=== PATIENT | female | born 1960 | race Caucasian/White ===

== ENCOUNTER 2021-07-28 15:27 | Emergency (ER) | payer OTHER, SELFPAY ==
[2021-07-28 16:16] VITALS: BP 162/88; PULSE 66; RESP 18; TEMP 36.5; O2SAT 99; BMI 45.7
[2021-07-28 16:20] VITALS: BP 148/73
[2021-07-28 17:24] LABS: Basophils Absolute Auto 0.1 X10*3/uL (0.0-0.2); Basophils Percent Auto 0.7 % (0-2); Eosinophils Absolute Auto 0.4 X10*3/uL (0.0-0.4); Eosinophils Percent Auto 6.1 % (0-4); Hematocrit 39.3 % (37.0-47.0); Hemoglobin 13.1 g/dl (12.0-16.0); Imm Gran Abs Auto 0.02 X10*3/uL (0.00-0.03); Imm Gran Pct Auto 0.3 % (0.0-0.4); Lymphocytes Absolute Auto 1.7 X10*3/uL (1.2-4.9); Lymphocytes Percent Auto 24.1 % (20-40); MANUAL DIFF FLAG NO; Mean Corpuscular HGB Conc 33.3 g/dl (31.0-35.0); Mean Corpuscular Hemoglobin 29.2 pg (27.0-33.0); Mean Corpuscular Volume 87.7 fL (80.0-98.0); Monocytes Absolute Auto 0.6 X10*3/uL (0.1-1.2); Monocytes Percent Auto 8.6 % (2-11); Neutrophils Absolute Auto 4.3 x10*3/uL (2.0-8.3); Neutrophils Percent Auto 60.2 % (45-73); Platelet Count 213 X10*3/uL (160-400); Red Blood Count 4.48 X10*6/uL (4.20-5.50); Red Cell Distribution Width 13.2 % (11.0-16.0); White Blood Count 7.2 X10*3/uL (4.8-10.8)
[2021-07-28 17:44] LABS: Alanine Aminotransferase 23 U/L (0-31); Albumin Level 4.4 g/dL (3.5-5.0); Alkaline Phosphatase 92 U/L (39-117); Anion Gap 12 (12-20); Aspartate Amino Transferase 20 U/L (5-31); Bilirubin Total 0.5 mg/dL (0.0-1.0); Blood Urea Nitrogen 12 mg/dL (9-16); Calcium 9.6 mg/dL (8.4-10.2); Carbon Dioxide 27 mmol/L (22-29); Chloride 106 mmol/L (96-108); Creatinine Clr Calc Pharmacy 92.4; Estimated Glomerular Filt Rate > 60; Glucose Random 96 mg/dL (60-115); Potassium 4.3 mmol/L (3.3-5.1); Sodium 141 mmol/L (135-145); Total Protein 7.3 g/dL (6.5-8.0)
--- NOTE | 2021-07-28 21:21 | ED_ITS ---
HPI - Back Pain/Injury General Chief Complaint: Abdominal Pain Stated Complaint: lower back pain Time Seen by Provider: 07/28/21 21:19 Source: patient Mode of arrival: ambulatory History of Present Illness HPI Narrative: 60-year-old female history of asthma LBBB presents with left lower back pain that is not been associated with fever, chills, nausea, vomiting, diarrhea and denies any urinary pain/burning/frequency. She states that the pain is constant and worsens with movement an wraps around into the left lower quadrant. The pain is been ongoing since Thursday. Patient does get some relief from application heat pack. Related Data Previous Rx's Medication Instructions Recorded cyclobenzaprine 5 mg tablet 5 mg PO BEDTIME PRN #3 tab 07/28/21 ketorolac 10 mg tablet 10 mg PO Q6H PRN 5 Days #20 tab 07/28/21 Allergies Allergy/AdvReac Type Severity Reaction Status Date / Time azithromycin AdvReac Abdominal Verified 07/28/21 16:20 Pain Review of Systems Review of Systems: Pertinent positives and negatives as stated in HPI 10 point review of systems is otherwise negative. [facility] Past Medical History Source: nursing notes reviewed Social History Social History Patient : No Physical Exam Vital Signs: Vital Signs: Last Vital Signs Temp 97.7 F 07/28/21 16:16 Pulse 66 07/28/21 16:16 Resp 18 07/28/21 16:16 BP 148/73 H 07/28/21 16:20 Pulse Ox 99 07/28/21 16:16 BMI result Body Mass Index 45.7 VITAL SIGNS: Reviewed. GENERAL: Well developed, well nourished, in no acute distress. HEAD: Normocephalic/atraumatic EYES: PERRLA, EOMI EARS: Ext canals without abnormality OROPHARYNX: no oral lesions noted, posterior pharynx clear LUNGS: Normal breath sounds. No adventitious sounds or accessory muscle use. SpO2<99> CARDIOVASCULAR: Regular rate and rhythm without noted murmurs ABDOMEN: Soft, non-tender, non-distended with bowel sounds. BACK: No CVA tenderness, tenderness to palpation over the superior left gluteus MUSCULOSKELETAL: No tenderness, deformities, or effusions noted on gross inspection. EXTREMITIES: No cyanosis, clubbing or edema. SKIN: Inspection of the skin reveals no rashes NEUROLOGIC: Alert and oriented x 4. Strength and sensation to light touch were grossly intact x 4. Course Course Course Narrative: 60-year-old female with history and clinical presentation consistent with acute on chronic back pain likely associated muscle spasm with radicular distribution. There is no history or clinical exam findings to suggest diverticulitis, renal colic, UTI, pyelonephritis. Patient provided with combination analgesics, lidocaine patch a small dose of muscle relaxant. On review of all investigations there are no acute findings and documentation from the urgent care demonstrates a negative urinalysis. Patient was instructed to stop the antibiotics that she had been provided by urgent care. She is otherwise discharged home in stable condition MDM - Back Pain/Injury Lab Data Result diagrams: 07/28/21 17:17 07/28/21 17:17 Labs: Lab Results 07/28/21 07/28/21 Range/Units 17:17 17:17 WBC 7.2 (4.8-10.8) X10*3/uL RBC 4.48 (4.20-5.50) X10*6/uL Hgb 13.1 (12.0-16.0) g/dl Hct 39.3 (37.0-47.0) % MCV 87.7 (80.0-98.0) fL MCH 29.2 (27.0-33.0) pg MCHC 33.3 (31.0-35.0) g/dl RDW 13.2 (11.0-16.0) % Plt Count 213 (160-400) X10*3/uL MPV 8.0 L (9.4-12.3) fL Immature Gran % (Auto) 0.3 (0.0-0.4) % Neut % (Auto) 60.2 (45-73) % Lymph % (Auto) 24.1 (20-40) % Cache % (Auto) 8.6 (2-11) % Eos % (Auto) 6.1 H (0-4) % Baso % (Auto) 0.7 (0-2) % Lymph # (Auto) 1.7 (1.2-4.9) X10*3/uL Cache # (Auto) 0.6 (0.1-1.2) X10*3/uL Eos # (Auto) 0.4 (0.0-0.4) X10*3/uL Baso # (Auto) 0.1 (0.0-0.2) X10*3/uL Abs Immat Gran (auto) 0.02 (0.00-0.03) X10*3/uL Absolute Neuts (auto) 4.3 (2.0-8.3) x10*3/uL Absolute Nucleated RBC 0.000 (0.0-0.012) X10*3/uL Nucleated RBC % (auto) 0.0 (0.0-0.2) /100WBC Sodium 141 (135-145) mmol/L Potassium 4.3 (3.3-5.1) mmol/L Chloride 106 (96-108) mmol/L Carbon Dioxide 27 (22-29) mmol/L Anion Gap 12 (12-20) BUN 12 (9-16) mg/dL Creatinine 0.79 (0.5-1.4) mg/dL Estim Creat Clear Calc 92.4 Estimated GFR > 60 Random Glucose 96 (60-115) mg/dL Calcium 9.6 (8.4-10.2) mg/dL Total Bilirubin 0.5 (0.0-1.0) mg/dL AST 20 (5-31) U/L ALT 23 (0-31) U/L Alkaline Phosphatase 92 (39-117) U/L Total Protein 7.3 (6.5-8.0) g/dL Albumin 4.4 (3.5-5.0) g/dL Discharge Plan Discharge Clinical Impression: Back pain, Muscle spasm Patient Disposition: Home, Self-Care Instructions: Lumbar Radiculopathy (ED), Muscle Spasm (ED), Back Pain (ED), Lower Back Exercises (ED) Additional Instructions: 1. Resume all home medications as prescribed. STOP taking antibiotics. 2. Tylenol 1000 mg, orally, every 6 hours as needed for pain control. Do not exceed 4000 mg within 24 hours. 3. Lidocaine patch, apply to area of maximal tenderness as directed on the outside packaging. 4. Follow-up with your primary care provider for re-evaluation further outpatient management. Return to the ER for worsening symptoms. Prescriptions: New ketorolac 10 mg tablet 10 mg PO Q6H PRN (Reason: pain) 5 Days Qty: 20 0RF Rx Instructions: Patient received Toradol in the emergency room. cyclobenzaprine 5 mg tablet 5 mg PO BEDTIME PRN (Reason: muscle spasm) Qty: 3 0RF
[2021-07-28] MEDS: Acetaminophen 325 MG TABLET 975 MG PO (21:38)
[2021-07-28] MEDS: Cyclobenzaprine HCl 5 MG TABLET PO (21:40)
[2021-07-28] MEDS: Lidocaine 4 % Patch ADH..PATCH 1 PATCH TRANSDERMA (21:40)
[2021-07-28] MEDS: Ketorolac Tromethamine 15 MG/ML VIAL IM (21:41)
== END 2021-07-28 21:54 | disposition home or self-care (01) ==
LOC: HO.ED 21:37
PROVIDERS: Emergency Provider Student in an Organized Health Care Education/Training Program; PCP Internal Medicine
DX: M54.50 Low back pain, unspecified (principal); Z79.899 Other long term (current) drug therapy
CPT/HCPCS: 36415; 80053; 85025; 96372; 99283; 99284; J1885

== ENCOUNTER → 2021-10-01 13:56 | Outpatient (BNVA) | payer OTHER, SELFPAY | PROVIDERS: PCP Internal Medicine; Visit Provider Physician Assistant | DX: E66.01 Morbid (severe) obesity due to excess calories (principal); Z68.42 Body mass index [BMI] 45.0-49.9, adult; I44.7 Left bundle-branch block, unspecified; J45.909 Unspecified asthma, uncomplicated; G47.10 Hypersomnia, unspecified ==

== ENCOUNTER 2021-10-24 08:40 | Outpatient (REF) | payer OTHER, SELFPAY ==
[2021-10-29 11:58] LABS: H Pylori Breath Test Negative (Negative)
== END 2021-10-24 08:41 | disposition home or self-care (01) ==
LOC: HO.LNP 08:40
PROVIDERS: Visit Provider Physician Assistant
DX: E66.01 Morbid (severe) obesity due to excess calories (principal); I44.7 Left bundle-branch block, unspecified; J45.909 Unspecified asthma, uncomplicated
CPT/HCPCS: 83013

== ENCOUNTER 2021-10-25 09:20 | Outpatient (REF) | payer OTHER, SELFPAY ==
--- NOTE | ~2021-10-25 | XR_ITS ---
EXAMINATION: XR CHEST CLINICAL INFORMATION: Bariatric service evaluation. COMPARISON: None TECHNIQUE: 2 views of the chest were obtained. FINDINGS: Lungs clear. No lobar or segmental consolidation or ground-glass opacity. Tapering cardiac apex is consistent with benign areolar tissue. The costophrenic sulci are clear. Heart size normal. Vascularity normal. The hilar and mediastinal contours and visualized bony structures are unremarkable. XR/XR chest 2V IMPRESSION: Unremarkable examination.
[2021-10-25 09:49] LABS: MANUAL DIFF FLAG NO
[2021-10-25 10:09] LABS: Basophils Percent Auto 0.5 % (0-2); Eosinophils Absolute Auto 0.2 X10*3/uL (0.0-0.4); Hematocrit 39.9 % (37.0-47.0); Hemoglobin 13.5 g/dl (12.0-16.0); Imm Gran Abs Auto 0.02 X10*3/uL (0.00-0.03); Imm Gran Pct Auto 0.4 % (0.0-0.4); Lymphocytes Absolute Auto 1.6 X10*3/uL (1.2-4.9); Lymphocytes Percent Auto 28.1 % (20-40); Mean Corpuscular HGB Conc 33.8 g/dl (31.0-35.0); Mean Corpuscular Hemoglobin 29.3 pg (27.0-33.0); Mean Corpuscular Volume 86.6 fL (80.0-98.0); Mean Platelet Volume 8.5 fL (9.4-12.3); Monocytes Absolute Auto 0.5 X10*3/uL (0.1-1.2); Monocytes Percent Auto 8.1 % (2-11); Neutrophils Absolute Auto 3.4 x10*3/uL (2.0-8.3); Neutrophils Percent Auto 59.9 % (45-73); Platelet Count 230 X10*3/uL (160-400); Red Blood Count 4.61 X10*6/uL (4.20-5.50); Red Cell Distribution Width 12.9 % (11.0-16.0); White Blood Count 5.7 X10*3/uL (4.8-10.8)
[2021-10-25 10:28] LABS: Estimated Average Glucose 108 mg/dL; Hemoglobin A1c % 5.4 %
[2021-10-25 10:38] LABS: Alanine Aminotransferase 13 U/L (0-31); Albumin Level 4.3 g/dL (3.5-5.0); Alkaline Phosphatase 91 U/L (39-117); Anion Gap 13 (12-20); Aspartate Amino Transferase 13 U/L (5-31); Bilirubin Total 0.4 mg/dL (0.0-1.0); Blood Urea Nitrogen 24 mg/dL (9-16); C Reactive Protein 0.44 mg/dL (< or = 0.50); Calcium 9.3 mg/dL (8.4-10.2); Carbon Dioxide 24 mmol/L (22-29); Chloride 107 mmol/L (96-108); Cholesterol 197 mg/dL; Estimated Glomerular Filt Rate > 60; Glucose Random 109 mg/dL (60-115); HDL Cholesterol 52 mg/dL; Iron 89 mcg/dL (30-160); LDL Cholesterol Calculated 131 mg/dl; Percent Iron Saturation 23 % (15-50); Potassium 4.4 mmol/L (3.3-5.1); Sodium 140 mmol/L (135-145); Total Iron Binding Capacity 386 mcg/dL (228-428); Total Protein 7.3 g/dL (6.5-8.0); Triglycerides 70 mg/dL; Unsaturated Iron Binding 297 ug/dL
[2021-10-25 11:11] LABS: Ferritin 104 ng/mL (10-250); TSH reflex Free T4 1.32 uIU/mL (0.32-4.0); Vitamin D 25-OH Total 22.6 ng/mL (>30)
[2021-10-25 11:15] LABS: Folate 9.2 ng/mL (> or = 4.0); Vitamin B12 430 pg/mL (200-900)
[2021-10-25 11:55] LABS: Insulin 9 uU/mL (2-29)
[2021-10-30 09:17] LABS: Zinc 77 mcg/dL (60-130)
[2021-10-30 22:42] LABS: Calcium (PTHI) 9.6 mg/dL (8.6-10.4); PTHI 61 pg/mL (16-77)
[2021-10-31 13:21] LABS: Vitamin A 48 mcg/dL (38-98)
[2021-10-31 15:18] LABS: Vitamin B1 7 nmol/L (8-30)
== END 2021-10-25 09:21 | disposition home or self-care (01) ==
LOC: HO.LAB 09:20
PROVIDERS: PCP Internal Medicine; Visit Provider Physician Assistant
DX: E66.01 Morbid (severe) obesity due to excess calories (principal); I44.7 Left bundle-branch block, unspecified; J45.909 Unspecified asthma, uncomplicated
CPT/HCPCS: 36415; 71046; 80053; 80061; 82306; 82607; 82728; 82746; 83036; 83525; 83540; 83970; 84425; 84443; 84590; 84630; 85025; 86140

== ENCOUNTER → 2021-11-04 09:55 | Outpatient (BNVA) | payer OTHER, SELFPAY | PROVIDERS: PCP Internal Medicine; Visit Provider Dietitian, Registered | DX: E66.9 Obesity, unspecified (principal) | CPT/HCPCS: 97802 ==

== ENCOUNTER → 2021-11-05 16:00 | Outpatient (BNVA) | payer OTHER, SELFPAY | PROVIDERS: PCP Internal Medicine; Visit Provider Counselor Mental Health | DX: F43.20 Adjustment disorder, unspecified (principal); E66.01 Morbid (severe) obesity due to excess calories | CPT/HCPCS: 90791 ==

== ENCOUNTER → 2021-11-11 10:28 | Outpatient (REF) | payer OTHER, SELFPAY ==
--- NOTE | 2021-11-11 10:34 | ECG_ITS ---
Test Reason : morbid obesity Blood Pressure : / mmHG Vent. Rate : 062 BPM Atrial Rate : 062 BPM P-R Int : 168 ms QRS Dur : 142 ms QT Int : 432 ms P-R-T Axes : -24 033 206 degrees QTc Int : 438 ms Normal sinus rhythm with sinus arrhythmia Left bundle branch block Abnormal ECG No previous ECGs available Referred By: Ana Molina Electronically Signed By:Daniel Perez
== END ==
LOC: HO.CARD 10:28
PROVIDERS: Visit Provider Physician Assistant
DX: I44.7 Left bundle-branch block, unspecified (principal); J45.909 Unspecified asthma, uncomplicated; E66.01 Morbid (severe) obesity due to excess calories
CPT/HCPCS: 93005

== ENCOUNTER 2021-11-19 08:29 | Outpatient (REF) | payer OTHER, SELFPAY ==
--- NOTE | ~2021-11-19 | US_ITS ---
EXAMINATION: US COMPLETE ABDOMEN WITH LIVER ELASTOGRAPHY CLINICAL INFORMATION: Morbid/severe obesity due to excess calories. COMPARISON: None. TECHNIQUE: Real-time imaging of the abdominal viscera. Noninvasive ultrasound liver fibrosis assessment is performed using July ElastPQ point quantification shear wave elastography (2D-SWE) with a C5-2 MHz transducer. Multiple elastography samples are obtained. FINDINGS: PANCREAS: The visualized pancreatic head and body are normal in appearance. The remainder of the pancreas is obscured from visualization by the overlying bowel gas. ABDOMINAL AORTA: The proximal, middle, and distal aortic segments are normal in caliber. INFERIOR VENA CAVA: Visualized portions are normal. LIVER: The liver demonstrates normal size, contour and echogenicity. No focal lesion or intrahepatic biliary duct dilatation. The right lobe measures 15.1 cm in length. The left lobe measures 9.5 cm in length. Portal flow is hepatopedal. Shear wave liver elastography median stiffness is 1.53 m/s (reference: normal median stiffness is 1.3 m/s or less). IQR/median stiffness to assess sampling precision is 0.12 (reference: good quality data set is IQR/median stiffness of 0.15 or less). GALLBLADDER: Normal. The gallbladder is physiologically distended without evidence of stones, sludge, polyps, wall thickening or pericholecystic fluid. COMMON BILE DUCT: Normal in caliber measuring 0.43 cm in diameter. RIGHT KIDNEY: There is hypertrophied column of Abhi. No hydronephrosis. No renal calculi or focal parenchymal lesions. The kidney measures 13.0 cm in maximum dimension. LEFT KIDNEY: Normal. No hydronephrosis. No renal calculi or focal parenchymal lesions. The kidney measures 12.2 cm in maximum dimension. SPLEEN: Normal. The spleen measures 13.0 cm in maximum dimension. FREE FLUID: None. US/US abdomen comp w elastography IMPRESSION: 1. Unremarkable complete abdomen ultrasound except for hypertrophic column of Abhi. 2. Liver elastography: Median liver stiffness of 1.53 corresponds to cACLD (ruled out). REFERENCE: Society of Radiologists in Ultrasound Liver Stiffness Thresholds (2019): LIVER STIFFNESS THRESHOLDS: *Liver Stiffness equal or less than 1.3 m/s: High probability of being normal. *Liver Stiffness less than 1.7 m/s: In the absence of other known clinical signs, rules out compensated advanced chronic liver disease. *Liver Stiffness 1.7-2.1 m/s: Suggestive of compensated advanced chronic liver disease but need further test for confirmation. *Liver Stiffness over 2.1 m/s: Rules in compensated advanced chronic liver disease. *Liver Stiffness over 2.4 m/s: Suggestive of clinically significant portal hypertension. QUALITY OF DATA SET: *IQR/Median value equal or less than 0.15 implies a quality data set. *IQR/Median value over 0.15 implies a poor quality data set. SIGNIFICANT CHANGE FROM PRIOR EXAM: Significant change if liver stiffness measurement is 10% or greater from prior exam. OTHER CONSIDERATIONS: The stage of liver fibrosis may be overestimated in the setting of acute hepatitis, liver inflammation, elevated liver function tests, hepatic vascular congestion, obstructive cholestasis, non-fasting state, and infiltrative diseases such as amyloidosis and lymphoma. In some patients with NAFLD, the liver stiffness thresholds for compensated advanced chronic liver disease may be lower. In causes other than viral hepatitis and NAFLD, liver stiffness thresholds are not well established.
--- NOTE | ~2021-11-19 | FL_ITS ---
EXAMINATION: FL UPPER GI SERIES CLINICAL INFORMATION: Bariatric service evaluation. E66.01. COMPARISON: None TECHNIQUE: Upper GI series is performed using fluoroscopic evaluation in addition to multiple fluoroscopic spot views. The patient is imaged both upright and prone and using both thick and thin barium sulfate along with effervescent granules. Fluoroscopy time: 1.7 minutes DAP: 30.213 Gycm2 Fluoroscopic spot images: 22 FINDINGS: There is normal esophageal motility. There is no obstruction, stricture, or ulceration. There is small sliding hiatal hernia, only demonstrated during the prone Valsalva maneuver. Herniation is not demonstrated with upright positioning. No gastroesophageal reflux is demonstrated. The stomach shows no thickened folds or ulcer crater or outlet obstruction. The duodenal bulb is pliable and without ulcer crater or scarring. The post bulbar duodenum the jejunal mucosal pattern are unremarkable. FL/FL upper GI w air IMPRESSION: -Small intermittent sliding hiatal hernia, only demonstrated during prone Valsalva maneuver. -No gastroesophageal reflux during exam. -No ulceration or scarring.
== END 2021-11-19 08:30 | disposition home or self-care (01) ==
LOC: HO.US 08:29
PROVIDERS: Visit Provider Physician Assistant
DX: Z01.818 Encounter for other preprocedural examination (principal); E66.01 Morbid (severe) obesity due to excess calories; K21.9 Gastro-esophageal reflux disease without esophagitis; J45.909 Unspecified asthma, uncomplicated; I44.7 Left bundle-branch block, unspecified
CPT/HCPCS: 74246; 76705; 76981

== ENCOUNTER → 2022-01-06 08:05 | Outpatient (REF) | payer OTHER, SELFPAY ==
--- NOTE | ~2022-01-06 | NM_ITS ---
Lexiscan Myocardial perfusion study Indication: Abnormal EKG, left bundle branch block Technique: The patient was brought in for a Lexiscan perfusion study on 01/06/2022 and was injected 0.4 mg of Lexiscan intravenously. Within a minute of this injection 35 mCi of sestamibi was given intravenously. Images were obtained using the SPECT gamma camera interlaced with the gating device. Images were obtained in supine position. Resting perfusion study was performed on 01/07/2022. Patient was administered 35 mCi of sestamibi intravenously at rest. Images were then obtained in supine position. Total DLP 143mGy-cm. Images were processed with the software and compared side to side in short axis, horizontal long axis and vertical long axis views. Findings: Raw acquisition reviewed. The stress perfusion study showed diminished tracer uptake along most of the septum, mid to distal anterior wall. Inferior wall interpretation is limited because of subdiaphragmatic tracer uptake. Somewhat suboptimal quality. With attenuation correction, image quality worse, technical. Gated study shows mildly diminished LV systolic function with calculated LVEF of 47%. LV cavity is normal in size. The gated study shows normal wall thickening and contraction of segments. Resting study shows diminished tracer uptake in most of the septum, parts of anterior wall. Could not assess the inferior wall due to subdiaphragmatic uptake. CT attenuation corrected images are technically limited. Gating at rest with ejection fraction at 35%. The findings are consistent with no clear reversible defects. Fixed perfusion defect in the septum, distal part of anterior wall that could be from left bundle branch block. Inferior wall could not be assessed due to subdiaphragmatic uptake. NM/NM darnell perf SPECT rest & str Impression: 1. Myocardial perfusion imaging study is suboptimal. No clear reversible ischemia. Fixed defect in the septum distal part of anterior wall that could be from the left bundle branch block itself. Inferior wall cannot assess adequately due to subdiaphragmatic uptake. 2. Gated LVEF is 47% during stress and 34% during rest. 3. Transient ischemic dilatation not present. EKG component of the test reported separately.
--- NOTE | 2022-01-06 08:07 | CA_ITS ---
Acquisition Time: 2022-01-06 08:17:37 Total Exercise Time: 00:02:00 Test Indications: Abnormal ECG LBBB Medications: NONE Protocol: LEXISCAN Max HR: 105 BPM 65% of Pred: 161 BPM Max BP: 124/080 mmHG Max Work Load: 1.0 METS Pharmacological stress test with Lexiscan injection, while sitting, without anginal symptoms, without arrythmia, with normotensive response to injection, with nondiagnostic EKG for ischemia. In recovery she was given Aminophylline 75 mg IVP to reverse Lexscan. Nuclear images pending. Test reviewed with with Dr Oseguera. Referred By: Ana Molina Overread By: EULALIA LOPEZ
== END ==
LOC: HO.CARD 08:05
PROVIDERS: Visit Provider Physician Assistant
DX: I44.7 Left bundle-branch block, unspecified (principal); E66.01 Morbid (severe) obesity due to excess calories
CPT/HCPCS: 78452; 93017; A9500; J0280; J2785

== ENCOUNTER 2022-01-29 08:54 | Inpatient (IN) | payer OTHER, SELFPAY ==
[2022-01-20 11:55] VITALS: BP 101/65; PULSE 74; RESP 20; O2SAT 97; BMI 38.3
--- NOTE | 2022-01-20 12:12 | P.CONAN_ITS ---
Documented by User: Migdalia eHlms NP 01/21/22 13:43 HPI - Anesthesia Eval Consult details Narrative: 61yo F for Gastrectomy Sleeve, EGD, possible diaphragmatic hernia, possible ventral hernia, possible open Cardiac cleared PMFSH Active Problems Active Problems: All Active Problems (Updated 01/20/22 @ 12:03 by Gloria Cueva RN) Morbid obesity (Acute) LBBB (left bundle branch block) (Acute) Asthma (Acute) Hypersomnolence (Acute) Adjustment disorder (Acute) Past Medical History Medical History (Updated 01/20/22 @ 12:03 by Gloira Cueva RN) Asthma COVID-19 vaccine series completed LBBB (left bundle branch block) Spine misalignment Family History Family History Mother Dementia Heart problem Father Sleep apnea Diabetes Hypertension FH: prostate cancer Diverticulitis Sister Obesity Diabetes Sleep apnea Melanoma Family history of problems with anesthesia: No Surgical History Surgical History (Updated 01/20/22 @ 11:52 by Gloria Cueva RN) H/O colonoscopy History of excision of pilonidal cyst History of laparoscopic cholecystectomy Hx of excision of mass Hx of laparoscopy History of Problems with Anesthesia: No Social History Social History Are you a primary career placement specialist to a significant other at home: No Do you presently have visiting nurse or other home services: No Alcohol intake: current Alcohol intake frequency: does not drink Patient Tobacco Use Status: Never used Tobacco Use of substances other than those prescribed or required for medical reasons: No Have you been hit, kicked, punched, or otherwise hurt by someone within the past year? If so, by whom?: No Are you DNR?: No Advance Directives: No Advance Directives Information Provided: Yes (as above noted-advised to bring copy DOS) Advance Directives on File: No Recently lost weight without trying: No Eating poorly because of decreased appetite: No Nutrition Risks: No Nutritional Risk Patient : No FDLMP: post menopausal : No Poor oral hygiene: No Narrative Narrative: No recent illness No CP/SOB with walking on flat ground Meds Allergies Allergy/AdvReac Type Severity Reaction Status Date / Time azithromycin AdvReac Abdominal Verified 01/29/22 08:29 Pain Home Medications Medication Instructions Recorded Confirmed Last Taken Type albuterol sulfate 90 mcg/actuation 2 puff inhalation QID 10/01/21 01/29/22 07/29/21 History aerosol inhaler Exam Exam Date and Time: January 20, 2022 1212 Height,Weight and Vital Signs: Height 5 ft 2 in Weight 95.164 kg Last Vital Signs Pulse 74 01/20/22 11:55 Resp 20 01/20/22 11:55 BP 101/65 01/20/22 11:55 Pulse Ox 97 01/20/22 11:55 O2 Del Method 01/20/22 11:55 Pertinent Lab Results Pertinent Lab Results: Lab Results 01/20/22 01/20/22 01/20/22 Range/Units 12:45 12:52 12:52 WBC 6.1 (4.8-10.8) X10*3/uL RBC 4.76 (4.20-5.50) X10*6/uL Hgb 14.5 (12.0-16.0) g/dl Hct 42.2 (37.0-47.0) % MCV 88.7 (80.0-98.0) fL MCH 30.5 (27.0-33.0) pg MCHC 34.4 (31.0-35.0) g/dl RDW 13.7 (11.0-16.0) % Plt Count 261 (160-400) X10*3/uL MPV 9.0 L (9.4-12.3) fL Immature Gran % (Auto) 0.3 (0.0-0.4) % Neut % (Auto) 72.9 (45-73) % Lymph % (Auto) 14.0 L (20-40) % [place] % (Auto) 11.9 H (2-11) % Eos % (Auto) 0.2 (0-4) % Baso % (Auto) 0.7 (0-2) % Lymph # (Auto) 0.9 L (1.2-4.9) X10*3/uL [place] # (Auto) 0.7 (0.1-1.2) X10*3/uL Eos # (Auto) 0.0 (0.0-0.4) X10*3/uL Baso # (Auto) 0.0 (0.0-0.2) X10*3/uL Abs Immat Gran (auto) 0.02 (0.00-0.03) X10*3/uL Absolute Neuts (auto) 4.4 (2.0-8.3) x10*3/uL Absolute Nucleated RBC 0.000 (0.0-0.012) X10*3/uL Nucleated RBC % (auto) 0.0 (0.0-0.2) /100WBC PT 12.6 (10.0-13.1) SEC INR 1.1 (0.9-1.1) APTT 32.3 (26.0-36.4) SEC Sodium (135-145) mmol/L Potassium (3.3-5.1) mmol/L Chloride (96-108) mmol/L Carbon Dioxide (22-29) mmol/L Anion Gap (12-20) BUN (9-16) mg/dL Creatinine (0.5-1.4) mg/dL Estim Creat Clear Calc Estimated GFR Random Glucose (60-115) mg/dL Estimat Average Glucose mg/dL Hemoglobin A1c % % Calcium (8.4-10.2) mg/dL Total Bilirubin (0.0-1.0) mg/dL AST (5-31) U/L ALT (0-31) U/L Alkaline Phosphatase (39-117) U/L C-Reactive Protein (< or = 0.50) mg/dL Total Protein (6.5-8.0) g/dL Albumin (3.5-5.0) g/dL Triglycerides mg/dL Cholesterol mg/dL LDL Cholesterol, Calc mg/dl HDL Cholesterol mg/dL TSH (0.32-4.0) uIU/mL Blood Type A Negative Antibody Screen NEGATIVE 01/20/22 01/20/22 Range/Units 12:52 12:52 WBC (4.8-10.8) X10*3/uL RBC (4.20-5.50) X10*6/uL Hgb (12.0-16.0) g/dl Hct (37.0-47.0) % MCV (80.0-98.0) fL MCH (27.0-33.0) pg MCHC (31.0-35.0) g/dl RDW (11.0-16.0) % Plt Count (160-400) X10*3/uL MPV (9.4-12.3) fL Immature Gran % (Auto) (0.0-0.4) % Neut % (Auto) (45-73) % Lymph % (Auto) (20-40) % [place] % (Auto) (2-11) % Eos % (Auto) (0-4) % Baso % (Auto) (0-2) % Lymph # (Auto) (1.2-4.9) X10*3/uL [place] # (Auto) (0.1-1.2) X10*3/uL Eos # (Auto) (0.0-0.4) X10*3/uL Baso # (Auto) (0.0-0.2) X10*3/uL Abs Immat Gran (auto) (0.00-0.03) X10*3/uL Absolute Neuts (auto) (2.0-8.3) x10*3/uL Absolute Nucleated RBC (0.0-0.012) X10*3/uL Nucleated RBC % (auto) (0.0-0.2) /100WBC PT (10.0-13.1) SEC INR (0.9-1.1) APTT (26.0-36.4) SEC Sodium 141 (135-145) mmol/L Potassium 4.2 (3.3-5.1) mmol/L Chloride 103 (96-108) mmol/L Carbon Dioxide 23 (22-29) mmol/L Anion Gap 19 (12-20) BUN 19 H (9-16) mg/dL Creatinine 0.76 (0.5-1.4) mg/dL Estim Creat Clear Calc 85.7 Estimated GFR > 60 Random Glucose 90 (60-115) mg/dL Estimat Average Glucose 108 mg/dL Hemoglobin A1c % 5.4 % Calcium 10.2 D (8.4-10.2) mg/dL Total Bilirubin 0.4 (0.0-1.0) mg/dL AST 15 (5-31) U/L ALT 23 (0-31) U/L Alkaline Phosphatase 97 (39-117) U/L C-Reactive Protein 0.62 H (< or = 0.50) mg/dL Total Protein 7.5 (6.5-8.0) g/dL Albumin 4.6 (3.5-5.0) g/dL Triglycerides 75 mg/dL Cholesterol 165 mg/dL LDL Cholesterol, Calc 105 mg/dl HDL Cholesterol 45 mg/dL TSH 1.21 (0.32-4.0) uIU/mL Blood Type Antibody Screen Narrative Narrative: EKG 10/2021 Vent. Rate : 062 BPM ? ? Atrial Rate : 062 BPM ?? P-R Int : 168 ms? QRS Dur : 142 ms ? ? QT Int : 432 ms ? ? ? P-R-T Axes : -24 033 206 degrees ?? QTc Int : 438 ms ? Normal sinus rhythm with sinus arrhythmia Left bundle branch block Abnormal ECG No previous ECGs available NM darnell perf SPECT rest & str 12/2021 Impression: ? 1.? Myocardial perfusion imaging study is suboptimal. No clear reversible ischemia. Fixed defect in the septum distal part of anterior wall that could be from the left bundle branch block itself. Inferior wall cannot assess adequately due to subdiaphragmatic uptake. 2.? Gated LVEF is 47% during stress and 34% during rest. 3. Transient ischemic dilatation not present. ? EKG component of the test reported separately. Airway Mallampati Class: I TM Dist: >3cm Neck ROM: Full Loose/Missing/Broken Teeth: No Heart: RRR Lungs: CTAB Assessment and Plan Assessment Anesthesia Assessment: Anesthesia Plan Discussed and PAT Visit Final Anesthetic Review Family History of Problems with Anesthesia: No History of Problems with Anesthesia: No Documented by User: Aleyda Eddy MD 01/29/22 08:54 [facility] Past Medical History Medical History (Updated 01/20/22 @ 12:03 by Gloria Cueva RN) Asthma COVID-19 vaccine series completed LBBB (left bundle branch block) Spine misalignment Family History Family History Mother Dementia Heart problem Father Sleep apnea Diabetes Hypertension FH: prostate cancer Diverticulitis Sister Obesity Diabetes Sleep apnea Melanoma Surgical History Surgical History (Updated 01/20/22 @ 11:52 by Gloria Cueva RN) H/O colonoscopy History of excision of pilonidal cyst History of laparoscopic cholecystectomy Hx of excision of mass Hx of laparoscopy Social History Social History Are you a primary career placement specialist to a significant other at home: No Do you presently have visiting nurse or other home services: No Alcohol intake: current Alcohol intake frequency: does not drink Patient Tobacco Use Status: Never used Tobacco Use of substances other than those prescribed or required for medical reasons: No Have you been hit, kicked, punched, or otherwise hurt by someone within the past year? If so, by whom?: No Are you DNR?: No Advance Directives: No Advance Directives Information Provided: Yes (as above noted-advised to bring copy DOS) Advance Directives on File: No Recently lost weight without trying: No Eating poorly because of decreased appetite: No Nutrition Risks: No Nutritional Risk Patient : No FDLMP: post menopausal : No Poor oral hygiene: No Meds Allergies Allergy/AdvReac Type Severity Reaction Status Date / Time azithromycin AdvReac Abdominal Verified 01/29/22 08:29 Pain Home Medications Medication Instructions Recorded Confirmed Last Taken Type albuterol sulfate 90 mcg/actuation 2 puff inhalation QID 10/01/21 01/29/22 07/29/21 History aerosol inhaler Exam Height,Weight and Vital Signs: Height 5 ft 2 in Weight 95.164 kg Last Vital Signs Pulse 74 01/20/22 11:55 Resp 20 01/20/22 11:55 BP 101/65 01/20/22 11:55 Pulse Ox 97 01/20/22 11:55 O2 Del Method 01/20/22 11:55 Vital Signs Temp Pulse Resp BP Pulse Ox O2 Del Method 01/29/22 08:39 97.4 F 65 16 123/66 95 Room Air Pertinent Lab Results Pertinent Lab Results: Lab Results 01/20/22 01/20/22 01/20/22 Range/Units 12:45 12:52 12:52 WBC 6.1 (4.8-10.8) X10*3/uL RBC 4.76 (4.20-5.50) X10*6/uL Hgb 14.5 (12.0-16.0) g/dl Hct 42.2 (37.0-47.0) % MCV 88.7 (80.0-98.0) fL MCH 30.5 (27.0-33.0) pg MCHC 34.4 (31.0-35.0) g/dl RDW 13.7 (11.0-16.0) % Plt Count 261 (160-400) X10*3/uL MPV 9.0 L (9.4-12.3) fL Immature Gran % (Auto) 0.3 (0.0-0.4) % Neut % (Auto) 72.9 (45-73) % Lymph % (Auto) 14.0 L (20-40) % [place] % (Auto) 11.9 H (2-11) % Eos % (Auto) 0.2 (0-4) % Baso % (Auto) 0.7 (0-2) % Lymph # (Auto) 0.9 L (1.2-4.9) X10*3/uL [place] # (Auto) 0.7 (0.1-1.2) X10*3/uL Eos # (Auto) 0.0 (0.0-0.4) X10*3/uL Baso # (Auto) 0.0 (0.0-0.2) X10*3/uL Abs Immat Gran (auto) 0.02 (0.00-0.03) X10*3/uL Absolute Neuts (auto) 4.4 (2.0-8.3) x10*3/uL Absolute Nucleated RBC 0.000 (0.0-0.012) X10*3/uL Nucleated RBC % (auto) 0.0 (0.0-0.2) /100WBC PT 12.6 (10.0-13.1) SEC INR 1.1 (0.9-1.1) APTT 32.3 (26.0-36.4) SEC Sodium (135-145) mmol/L Potassium (3.3-5.1) mmol/L Chloride (96-108) mmol/L Carbon Dioxide (22-29) mmol/L Anion Gap (12-20) BUN (9-16) mg/dL Creatinine (0.5-1.4) mg/dL Estim Creat Clear Calc Estimated GFR Random Glucose (60-115) mg/dL Estimat Average Glucose mg/dL Hemoglobin A1c % % Calcium (8.4-10.2) mg/dL Total Bilirubin (0.0-1.0) mg/dL AST (5-31) U/L ALT (0-31) U/L Alkaline Phosphatase (39-117) U/L C-Reactive Protein (< or = 0.50) mg/dL Total Protein (6.5-8.0) g/dL Albumin (3.5-5.0) g/dL Triglycerides mg/dL Cholesterol mg/dL LDL Cholesterol, Calc mg/dl HDL Cholesterol mg/dL TSH (0.32-4.0) uIU/mL Blood Type A Negative Antibody Screen NEGATIVE 01/20/22 01/20/22 Range/Units 12:52 12:52 WBC (4.8-10.8) X10*3/uL RBC (4.20-5.50) X10*6/uL Hgb (12.0-16.0) g/dl Hct (37.0-47.0) % MCV (80.0-98.0) fL MCH (27.0-33.0) pg MCHC (31.0-35.0) g/dl RDW (11.0-16.0) % Plt Count (160-400) X10*3/uL MPV (9.4-12.3) fL Immature Gran % (Auto) (0.0-0.4) % Neut % (Auto) (45-73) % Lymph % (Auto) (20-40) % [place] % (Auto) (2-11) % Eos % (Auto) (0-4) % Baso % (Auto) (0-2) % Lymph # (Auto) (1.2-4.9) X10*3/uL [place] # (Auto) (0.1-1.2) X10*3/uL Eos # (Auto) (0.0-0.4) X10*3/uL Baso # (Auto) (0.0-0.2) X10*3/uL Abs Immat Gran (auto) (0.00-0.03) X10*3/uL Absolute Neuts (auto) (2.0-8.3) x10*3/uL Absolute Nucleated RBC (0.0-0.012) X10*3/uL Nucleated RBC % (auto) (0.0-0.2) /100WBC PT (10.0-13.1) SEC INR (0.9-1.1) APTT (26.0-36.4) SEC Sodium 141 (135-145) mmol/L Potassium 4.2 (3.3-5.1) mmol/L Chloride 103 (96-108) mmol/L Carbon Dioxide 23 (22-29) mmol/L Anion Gap 19 (12-20) BUN 19 H (9-16) mg/dL Creatinine 0.76 (0.5-1.4) mg/dL Estim Creat Clear Calc 85.7 Estimated GFR > 60 Random Glucose 90 (60-115) mg/dL Estimat Average Glucose 108 mg/dL Hemoglobin A1c % 5.4 % Calcium 10.2 D (8.4-10.2) mg/dL Total Bilirubin 0.4 (0.0-1.0) mg/dL AST 15 (5-31) U/L ALT 23 (0-31) U/L Alkaline Phosphatase 97 (39-117) U/L C-Reactive Protein 0.62 H (< or = 0.50) mg/dL Total Protein 7.5 (6.5-8.0) g/dL Albumin 4.6 (3.5-5.0) g/dL Triglycerides 75 mg/dL Cholesterol 165 mg/dL LDL Cholesterol, Calc 105 mg/dl HDL Cholesterol 45 mg/dL TSH 1.21 (0.32-4.0) uIU/mL Blood Type Antibody Screen Laboratory Results - last 24 hr 01/28/22 09:50 COVID-19 ([facility]) Negative COVID-19 Clin Com See Note Assessment and Plan Assessment Anesthesia Assessment: Chart Reviewed Final Anesthetic Review NPO: Yes ASA Class: III Final Preanesthetic Review: No Changes in Pt Med Stat, Meds/Allgs Chart Reviewed, Consent Obtained/Reviewed and Anes Risks/Benef Reviewed Patient Risk: Intermediate Procedure Risk: Intermediate Assessment/Block/Sedation in SS: Assess/Block/Sedation-SS Anesthetic Plan Anesthetic Plan: GA Disposition: Standard PACU and Inp. Admit - Standard Bed
[2022-01-20 12:54] LABS: MANUAL DIFF FLAG NO
[2022-01-20 14:00] LABS: Basophils Percent Auto 0.7 % (0-2); Eosinophils Percent Auto 0.2 % (0-4); Hematocrit 42.2 % (37.0-47.0); Hemoglobin 14.5 g/dl (12.0-16.0); Imm Gran Abs Auto 0.02 X10*3/uL (0.00-0.03); Imm Gran Pct Auto 0.3 % (0.0-0.4); Lymphocytes Absolute Auto 0.9 X10*3/uL (1.2-4.9); Mean Corpuscular HGB Conc 34.4 g/dl (31.0-35.0); Mean Corpuscular Hemoglobin 30.5 pg (27.0-33.0); Mean Corpuscular Volume 88.7 fL (80.0-98.0); Monocytes Absolute Auto 0.7 X10*3/uL (0.1-1.2); Monocytes Percent Auto 11.9 % (2-11); Neutrophils Absolute Auto 4.4 x10*3/uL (2.0-8.3); Neutrophils Percent Auto 72.9 % (45-73); Platelet Count 261 X10*3/uL (160-400); Red Blood Count 4.76 X10*6/uL (4.20-5.50); Red Cell Distribution Width 13.7 % (11.0-16.0); White Blood Count 6.1 X10*3/uL (4.8-10.8)
[2022-01-20 14:08] LABS: INTERNATIONAL NORM RATIO 1.1 (0.9-1.1); Prothrombin Time 12.6 SEC (10.0-13.1)
[2022-01-20 14:09] LABS: Estimated Average Glucose 108 mg/dL; Hemoglobin A1c % 5.4 %
[2022-01-20 14:11] LABS: Partial Thromboplastin Time 32.3 SEC (26.0-36.4)
[2022-01-20 14:51] LABS: Alanine Aminotransferase 23 U/L (0-31); Albumin Level 4.6 g/dL (3.5-5.0); Alkaline Phosphatase 97 U/L (39-117); Anion Gap 19 (12-20); Aspartate Amino Transferase 15 U/L (5-31); Bilirubin Total 0.4 mg/dL (0.0-1.0); Blood Urea Nitrogen 19 mg/dL (9-16); C Reactive Protein 0.62 mg/dL (< or = 0.50); Calcium 10.2 mg/dL (8.4-10.2); Carbon Dioxide 23 mmol/L (22-29); Chloride 103 mmol/L (96-108); Cholesterol 165 mg/dL; Creatinine Clr Calc Pharmacy 85.7; Estimated Glomerular Filt Rate > 60; Glucose Random 90 mg/dL (60-115); HDL Cholesterol 45 mg/dL; LDL Cholesterol Calculated 105 mg/dl; Potassium 4.2 mmol/L (3.3-5.1); Sodium 141 mmol/L (135-145); Total Protein 7.5 g/dL (6.5-8.0); Triglycerides 75 mg/dL
[2022-01-20 15:03] LABS: TSH reflex Free T4 1.21 uIU/mL (0.32-4.0)
[2022-01-28 10:21] LABS: COVID-19 Test Negative (Negative); IDNOW Serial# 55D5AD1C
[2022-01-29] VITALS (14 sets, daily range): BP systolic 123–145; BP diastolic 61–74; PULSE 48–79; RESP 16–18; TEMP 36.3–36.9; O2SAT 95–99
[2022-01-29] MEDS: Scopolamine 1.5 MG PATCH.TD.3 TRANSDERMA (08:56)
[2022-01-29] MEDS: Lactated Ringers 1,000 ML 150 ML IVCONT (09:02)
--- NOTE | 2022-01-29 09:30 | PHA.MEDREC ---
Pharmacy Consult ? Medication Reconciliation Pharmacy has completed the medication reconciliation. Reviewed med rec done by nursing
--- NOTE | 2022-01-29 10:28 | MHC.SHP ---
Pre-Procedural Eval Section A Date of Service: 01/29/22 The patient is an INPATIENT: Yes The History & Physical has been completed within 30 days and I have reviewed it.: Yes Section B Chief Complaint: Morbid (severe) obesity due to excess calories Allergies: Allergies Allergy/AdvReac Type Severity Reaction Status Date / Time azithromycin AdvReac Abdominal Verified 01/29/22 08:29 Pain Plan I have reviewed the history and physical and performed a pertinent physical examination on my patient. No changes have occurred unless specified.
--- NOTE | 2022-01-29 10:29 | W.PM.OPN ---
Operative Note Operative Note Date of Service: 01/29/22 Narrative: Preop diagnosis: [Morbid obesity, possible hiatal hernia] Postop diagnosis: [same, hiatal hernia, replaced hepatic artery, lesser omentum lymph node, adhesions] Procedure: [Hiatal hernia repair, Sleeve gastrectomy, intraoperative upper endoscopy, gastropexy, lysis of adhesions and lymph node biopsy] Surgeon: Star Rivera MD Assist: [Toni Ling PA-C] Anesthesia: [GET, ropivicaine, 0.5%] Estimated blood loss: [3cc] Specimen: [Portion of stomach with fundal] Intraoperative findings: [1) Hiatal hernia; 2) lesser omentum node approx 2x 2cm in size; 3) replaced hepatic artery, preserved; 4) RUQ adhesions requiring lysis for 20 minutes ] Indications: [The patient is a 61-year-old woman with a lifelong struggle with obesity. She entered our bariatric program at 254 lb with a BMI of 46.5. After demonstrating healthy lifestyle changes and weight loss related, we discussed continued medical management versus surgical weight loss with sleeve gastrectomy or gastric bypass. After reviewing options, the patient wanted to proceed with a sleeve gastrectomy. B has a possible hiatal hernia was identified during her upper GI when prone, we discussed sleeve gastrectomy, intraoperative endoscopy and possible hiatal hernia repair with gastropexy including the inherent risks & options. I reviewed the inherent risks of this procedure which include, but are not limited to: Bleeding that could require another operation or blood transfusion; the inherent risks of transfusion reaction infectious disease from blood transfusions; the risk of staple line leaks that could cause sepsis, multi-system organ failure and ; the risk of mesenteric or deep vein thrombosis of the lower extremities that could cause a fatal pulmonary embolism was reviewed; the risk of GERD that could require conversion to gastric bypass was discussed; the risk of recurrent hiatal hernia, especially in the setting of weight regain was reviewed. The risk of weight regain if maladaptive eating and sedentary behavior continue was discussed. The importance of proper diet and increased activity to augment surgical weight loss and the fact that no operation would result in weight loss of poor dietary decisions and sedentary behavior are resumed were discussed at length and apparently understood. Procedure: [Procedure: The patient was identified in the preoperative holding area by myself and again in the operating suite by myself and the team. Patient was placed supine on the operating table. Safety straps were utilized and a footboard utilized. The patient was induced in general endotracheal anesthesia administered with excellent effect. An appropriate time-out was performed. The patient's abdomen was then widely prepped and draped in the usual manner for surgery using chlorhexidine. Antibiotics per protocol were administered by Anesthesia. The pt voided her bladder occupational therapy professor to surgery. SCDs were utilized. After infiltrating preemptive local in the skin and subcutaneous tissues in the left subcostal space, a stab incision was made sharply and the Veress needle inserted without incident. Appropriate drop test was performed then a pneumoperitoneum of 15 mmHg was obtained using carbon dioxide. Opening pressures were 8 mm Hg. Preemptive local was used at all trocar insertion sites and I began in the epigastric midline 10 cm from the xiphoid. A transverse incision was made. Next, a 5 mm 0 degree scope over a 5 mm Optiview trocar was used to access the abdomen in the in the midline of the epigastrium approximately 10 cm from the xiphoid. Upon entering, the obturator was removed and the abdomen explored. There was no evidence of injury from the Veress needle in it was removed. The bowel and deep structures were examined for injury from the trocar and none identified. The scope was then switched to a 5 mm 45 degree scope. Next, using preemptive local, additional 5 mm trocars were placed under direct laparoscopic vision and the 5 mm midline trocar upsized to a 12 mm to accommodate the stapler. The patient was then positioned in reverse Trendelenburg and the liver retractor deployed through the right lateral 5 mm trocar and secured. The patient had a prior exploratory laparoscopy and is significant amount of epigastric and right upper quadrant adhesions requiring lysis of adhesion using the LigaSure for 20 minutes. An hiatal hernia was demonstrated once the liver retractor was positioned. In addition, a 2 x 2 cm lymph node was noted on the lesser curvature up towards the hiatal hernia. The stomach was already decompressed, but the 40 [place] ViSiGi was insterted to the GE junction by the anesthesiologist without difficulty. Dissection was begun along the greater curvature using the 5 mm [place] LigaSure for hemostasis. Dissection was then carried towards the pylorus to 3-4 cm from the pylorus and retro gastric adhesions lysed. The gastroesophageal fat pad was carefully mobilized taking care to avoid injury to the esophagus and stomach and dissection carried towards the short gastrics taking care to avoid injury to the spleen and splenic artery. The diaphragmatic hiatus was carefully examined for a hernia which was present as described, so repair was indicated. Dissection was carried from the left cem of the diaphragm posteriorly. Next, the phrenoesophogeal memberane was open anterior and the pars flaccida opened to access the right cem of the diaphragm, and during this dissection, replaced hepatic artery was noted and preserved through the dissection. In addition, the large lymph node was circumferentially dissected and sent for permanent section.. The esophagus was carefully preserved, mobilized & freed into the abdomen for 3-4cm by dissection carried into the mediastinum. The esophagus was then surrounded with a quarter-inch Jorge drain and retracted anteriorly to facilitate posterior repair. Posterior dissection of the retroesophageal area was performed to demonstrate both crurae and hiatal hernia repair was performed using two 0 silk sutures with posterior repair. As the ViSiGi bougie was advanced back into the stomach, there was a small anterior defect that remained on the diaphragm which was closed with a 0 silk suture. Next, the 40 [place] ViSiGi bougies was advanced by anesthesiologist under direct vision and laparoscopic guidance and positioned in the antrum using laparoscopic graspers to serve as a guide for a stapled sleeve gastrectomy. Stapling was performed with [employer] Endo-LUKAS stapler with a purple 45 and then orange 45 and 60 loads. The 10 mm clip delivery of shopping news was used to apply additional clips to the staple line. Care was taken to be sure that the sleeve laid flat and was without stricture. Once the sleeve was complete, the portion of stomach was placed in the lower abdomen to be sent for permanent section. The staple line, gastrocolic omentum, spleen and short gastric areas were all inspected for hemostasis which was found to be good. The lavage tube was withdrawn under laparoscopic vision. An on the table leak test was performed with the ViSiGi Bougie which was negative for leak. Next, I broke scrub perform an on-table upper endoscopy to assess the sleeve and the esophagus and stomach. The patient was returned to neutral position and the Olympus 160 gastroscope was advanced taking care to preserve the endotracheal tube. The esophagus was intubated without incident. Minimal air was insufflated and the scope advanced into the newly formed sleeve. The staple line was inspected for hemostasis and the morphology of the sleeve appeared straight with a uniform diameter. Intraoperatively, there was no evidence of staple line leak seen during laparoscopy as air was insufflated via endoscope. The scope was then used to aspirate the air from the sleeve withdrawn and removed. I then rescrubbed to return to the operative field and again inspected the field for hemostasis. The patient was again placed in reverse Trendelenburg. A gastropexy was performed using 2-0 polysorb suture to secure the sleeve gastrectomy to the gastrocolic omentum with intracorporeal suture technique. After final assessment for hemostasis, the patient was returned to neutral position, a Katt used to withdraw the stomach which was sent for permanent section. The fascia of the 12 mm midline was closed using an 0 Polysorb on a suture Passer under direct laparoscopic vision. The abdomen was then deflated and all trocars removed. The suture was then tied and the skin closed with 4-0 Monocryl subcuticular sutures. The abdomen was then washed and dried, benzoin and Steri-Strips applied followed by Band-Aids. The patient tolerated the procedure well was then extubated and sent to PACU in stable condition. All sponge needle and instrument counts were correct x2. At the patient's request, I contact the pt's son Unruly at [phone] to apprise him of the operation and findings. There was no answer, so I message was left noting that surgery had gone well that she was headed to recovery.
--- NOTE | 2022-01-29 10:37 | P.CONAN_ITS ---
[facility] Active Problems Active Problems: All Active Problems (Updated 01/20/22 @ 12:03 by Gloria Cueva RN) Morbid obesity (Acute) LBBB (left bundle branch block) (Acute) Asthma (Acute) Hypersomnolence (Acute) Adjustment disorder (Acute) Past Medical History Medical History (Updated 01/20/22 @ 12:03 by Gloria Cueva RN) Asthma COVID-19 vaccine series completed LBBB (left bundle branch block) Spine misalignment Family History Family History Mother Dementia Heart problem Father Sleep apnea Diabetes Hypertension FH: prostate cancer Diverticulitis Sister Obesity Diabetes Sleep apnea Melanoma Family history of problems with anesthesia: No Surgical History Surgical History (Updated 01/20/22 @ 11:52 by Gloria Cueva RN) H/O colonoscopy History of excision of pilonidal cyst History of laparoscopic cholecystectomy Hx of excision of mass Hx of laparoscopy History of Problems with Anesthesia: No Social History Social History Are you a primary campground caretaker to a significant other at home: No Do you presently have visiting nurse or other home services: No Alcohol intake: current Alcohol intake frequency: does not drink Patient Tobacco Use Status: Never used Tobacco Use of substances other than those prescribed or required for medical reasons: No Have you been hit, kicked, punched, or otherwise hurt by someone within the past year? If so, by whom?: No Are you DNR?: No Advance Directives: No Advance Directives Information Provided: Yes (as above noted-advised to bring copy DOS) Advance Directives on File: No Recently lost weight without trying: No Eating poorly because of decreased appetite: No Nutrition Risks: No Nutritional Risk Patient : No FDLMP: post menopausal : No Poor oral hygiene: No Meds Allergies Allergy/AdvReac Type Severity Reaction Status Date / Time azithromycin AdvReac Abdominal Verified 01/29/22 08:29 Pain Active Medications: Current Medications Albuterol Sulfate (Albuterol Sulfate (0.083%) 2.5 Mg/3 Ml Vial.Neb) 2.5 mg INHALE ONCE PRN PRN Reason: Shortness of Breath/Wheezing Fentanyl (Fentanyl Citrate/Pf 100 Mcg/2 Ml Vial) 25 mcg IVPUSH Q5M PRN; Protocol PRN Reason: Pain, Moderate (Pain Scale 4-6 Hydromorphone HCl (Hydromorphone Hcl 0.5 Mg/0.5 Ml Syringe) 0.25 mg IVPUSH Q5M PRN; Protocol PRN Reason: Pain, Severe (Pain Scale 7-10) Lactated Ringer's (Lr) 1,000 mls @ 150 mls/hr IVCONT .Q6H40M [facility] Last Admin: 01/29/22 09:02 Dose: 150 mls/hr Promethazine HCl 6.25 mg/ (Sodium Chloride) 50.25 mls @ 201 mls/hr IV ONCE PRN PRN Reason: Nausea and Vomiting Ondansetron HCl (Ondansetron Hcl 4 Mg/2 Ml Vial) 4 mg IVPUSH ONCE PRN PRN Reason: Nausea and Vomiting Home Medications Medication Instructions Recorded Confirmed Last Taken Type albuterol sulfate 90 mcg/actuation 2 puff inhalation QID 10/01/21 01/29/22 07/29/21 History aerosol inhaler Exam Exam Date and Time: January 29, 2022 1037 Height,Weight and Vital Signs: Height 5 ft 2 in Weight 95.164 kg Last Vital Signs Temp 97.4 F 01/29/22 08:39 Pulse 65 01/29/22 08:39 Resp 16 01/29/22 08:39 BP 123/66 01/29/22 08:39 Pulse Ox 95 01/29/22 08:39 O2 Del Method 01/29/22 08:39 Pertinent Lab Results Pertinent Lab Results: Laboratory Tests 01/20/22 01/20/22 01/20/22 12:45 12:52 12:52 WBC 6.1 RBC 4.76 Hgb 14.5 Hct 42.2 MCV 88.7 MCH 30.5 MCHC 34.4 RDW 13.7 Plt Count 261 MPV 9.0 L Immature Gran % (Auto) 0.3 Neut % (Auto) 72.9 Lymph % (Auto) 14.0 L [place] % (Auto) 11.9 H Eos % (Auto) 0.2 Baso % (Auto) 0.7 Lymph # (Auto) 0.9 L [place] # (Auto) 0.7 Eos # (Auto) 0.0 Baso # (Auto) 0.0 Abs Immat Gran (auto) 0.02 Absolute Neuts (auto) 4.4 Absolute Nucleated RBC 0.000 Nucleated RBC % (auto) 0.0 PT 12.6 INR 1.1 APTT 32.3 Sodium Potassium Chloride Carbon Dioxide Anion Gap BUN Creatinine Estim Creat Clear Calc Estimated GFR Random Glucose Estimat Average Glucose Hemoglobin A1c % Calcium Total Bilirubin AST ALT Alkaline Phosphatase C-Reactive Protein Total Protein Albumin Triglycerides Cholesterol LDL Cholesterol, Calc HDL Cholesterol TSH COVID-19 ([facility]) COVID-19 Clin Com Blood Type A Negative Antibody Screen NEGATIVE 01/20/22 01/20/22 01/28/22 12:52 12:52 09:50 WBC RBC Hgb Hct MCV MCH MCHC RDW Plt Count MPV Immature Gran % (Auto) Neut % (Auto) Lymph % (Auto) [place] % (Auto) Eos % (Auto) Baso % (Auto) Lymph # (Auto) Carver # (Auto) Eos # (Auto) Baso # (Auto) Abs Immat Gran (auto) Absolute Neuts (auto) Absolute Nucleated RBC Nucleated RBC % (auto) PT INR APTT Sodium 141 Potassium 4.2 Chloride 103 Carbon Dioxide 23 Anion Gap 19 BUN 19 H Creatinine 0.76 Estim Creat Clear Calc 85.7 Estimated GFR > 60 Random Glucose 90 Estimat Average Glucose 108 Hemoglobin A1c % 5.4 Calcium 10.2 D Total Bilirubin 0.4 AST 15 ALT 23 Alkaline Phosphatase 97 C-Reactive Protein 0.62 H Total Protein 7.5 Albumin 4.6 Triglycerides 75 Cholesterol 165 LDL Cholesterol, Calc 105 HDL Cholesterol 45 TSH 1.21 COVID-19 ([facility]) Negative COVID-19 Clin Com See Note Blood Type Antibody Screen Airway Mallampati Class: III TM Dist: >3cm Neck ROM: Full Assessment and Plan Assessment Anesthesia Assessment: Anesthesia Plan Discussed and Chart Reviewed Final Anesthetic Review Family History of Problems with Anesthesia: No History of Problems with Anesthesia: No NPO: Yes ASA Class: III Final Preanesthetic Review: No Changes in Pt Med Stat, Meds/Allgs Chart Revie thu, Consent Obtained/Reviewed and Anes Risks/Benef Reviewed Patient Risk: Intermediate Procedure Risk: Intermediate Anesthetic Plan Anesthetic Plan: GA Disposition: Standard PACU and Inp. Admit - Standard Bed
--- NOTE | 2022-01-29 14:15 | P.DS_ITS ---
DS: Providers Provider Date of Service: 01/30/22 Date of admission: 01/29/22 08:54 Primary care physician: Darian Miller MD DS: Summary Hospital Course Hospital Course: ADMITTING DIAGNOSIS: obesity, asthma, LBBB ? DISCHARGE DIAGNOSIS: same, s/p laparoscopic sleeve gastrectomy and repair diaphragmatic hernia ? PAST SURGICAL HISTORY: laparoscopic cholecystectomy, ex lap ? PROCEDURE: upper endoscopy, laparoscopic sleeve gastrectomy and repair of diaphragmatic hernia hernia ? DISCHARGE SUMMARY: ? History of Present Illness: ? The patient is a?61 year-old woman with a BMI of?46.5 kg/m2 and associated co- morbidities as described above. The patient had extensive work-up,lost?44.8 lbs preoperatively and was electively scheduled for laparoscopic, possible open sleeve gastrectomy and gastropexy. Risks and complications of the surgery were discussed with the patient in advance, particularly the possibility of , pulmonary embolism, anastomotic leak, bleeding, bowel injury, GERD, cardiac, renal or pulmonary complications. The patient understood all the risks and was in agreement with the surgical plan. ? Hospital Course: ? The patient underwent an uneventful laparoscopic sleeve gastrectomy with gastropexy and repair of diaphragmatic hernia on the day of admission. Postoperatively, the patient was transferred to the surgical floor. The patient received IV Acetaminophen and IV dilaudid for pain control. Patient was started on bariatric phase 1 diet POD #0. On postoperative day one, the patient was feeling well without nausea, vomiting, fevers, or tachycardia. The patient had some mild incisional pain and the abdomen was soft. ? On the morning of postoperative day one, the patient was continued on 1 ounce of water or ice every half hour. During the day, the patient did fairly well, having some incisional pain, but able to ambulate adequately and to tolerate liquids well. ? Since the patient is doing well, we decided that the patient was ready to be discharged. The patient was given instructions to follow-up with me next week and to call my office for any fever over 101, persistent abdominal pain, nausea, vomiting, GERD, symptoms of DVT such as calf tenderness, or leg swelling, or pulmonary embolism such as chest pain or shortness of breath. The patient was also instructed to drink 40-60 ounces of liquids per day using the 1-ounce cups. The patient had been given prescriptions for Tylenol for pain, Zofran prn for nausea, and pantoprazole and carafate previously. The patient was encouraged to ambulate and use the incentive spirometer. The patient was allowed to shower, but no baths, and encouraged to stay active at home. All of these instructions were given to the patient personally. All questions were answered and the patient understood all instructions, the instructions were also given to the patient in print. Time Spent with Patient Time attestation: Total time spent providing and/or coordinating discharge services: Discharge coordination time: Less than 30 minutes Quality: Safe Use of Opioids Does Pt have an Active Cancer Diagnosis on the Problem List?: No Quality: Stroke Does the patient have a stroke diagnosis?: No Physical Exam Vital Signs: Vital Signs: Last Vital Signs Temp 97.4 F 01/29/22 08:39 Pulse 65 01/29/22 08:39 Resp 16 01/29/22 08:39 BP 123/66 01/29/22 08:39 Pulse Ox 95 01/29/22 08:39 O2 Del Method 01/29/22 08:39 BMI result Body Mass Index 38.3 DS: Data Data Completed and Pending Pending studies at discharge: Pending at discharge 01/29/22 13:35 Surgical [PTH] Routine Discharge Plan Discharge Anticipated Discharge Date/Time: 01/30/22 10:00 Patient Disposition: Home, Self-Care Discharge Diagnosis: s/p laparoscopic sleeve gastrectomy and repair of diaphragmatic hernia Referrals: Darian Miller MD [Primary Care Provider] - 1 Week Star Rivera MD [Physician] - 1 Week Discharge Medications: Continued albuterol sulfate 90 mcg/actuation HFA aerosol inhaler 2 puff inhalation QID pantoprazole 40 mg tablet,delayed release (DR/EC) 40 mg PO DAILY Qty: 30 2RF acetaminophen 500 mg/15 mL liquid 500 mg PO Q6H Qty: 237 2RF sucralfate [Carafate] 100 mg/mL suspension 10 ml PO BID Qty: 414 0RF ondansetron HCl 4 mg tablet 4 mg PO Q6-8H PRN (Reason: nausea and vomiting) Qty: 20 0RF Discontinued cholecalciferol (vitamin D3) 25 mcg (1,000 unit) capsule 25 mcg PO DAILY Qty: 30 5RF cyanocobalamin (vitamin B-12) 250 mcg tablet 250 mcg PO DAILY Qty: 30 5RF thiamine HCl (vitamin B1) 50 mg tablet 50 mg PO DAILY Qty: 30 5RF Discharge Orders: Discharge Order (Routine); Ordered 01/30/22 Ordered By: Star Rivera Diet: Bariatric phase 2 Activity on Discharge: No heavy lifting Care Plan Goals: weight loss Health Concerns: obesity Plan of Treatment: No tub baths, sex or returning to work until discussed at first post op appointment. No exercise, alcohol, tobacco or illegal drug use. Continue to use incentive spirometer hourly while awake. Walk in home for 5- 10 minutes every 2 hours during the first week. Follow all instructions in the bariatric handbook and call with any questions.Discharge Instructions 1. Please call your doctor or come back to the emergency room should any new symptoms arise. 2. You will receive a courtesy call from [facility] 24-48 hours after discharge. 3. Activity: abstain from alcohol, practice limited stair climbing, no bending, no driving, no exercise, no illicit substances, no lifting, no sex, no tub bath, no work. 4. Diet: continue as discussed with Dr. Rivera. 5. Dressing Change/Wound Care: Your incision is covered by clear bandages and guaze underneath. If the area is tender, you may apply an ice pack for short intervals (no more than 20 minutes on, followed by at least 20 minutes off). Do not apply heat. Do not use creams, lotions, or topical antibiotics unless instructed to do so by your surgeon. These can cause infection or allergic reaction. 6. Call your doctor if: - Your temperature exceeds 101.5 F - You experience excessive pain or swelling - You have an unexpected reaction to medication - You have excessive bleeding - You experience continued vomiting/nausea - Your incision begins to separate - Your incision shows signs of infection such as increased redness, swelling, excessive pain, heat, or drainage (light blood or clear fluid is normal) 7. General instructions: No lifting greater than 5 lbs for the next 4 weeks. [address] driving within 24 hours of taking narcotic pain medications. If you do not move your bowels in the next 2 days, please take milk of magnesia over the counter. Please follow the post op diet and do not advance your diet until you are seen in the office in about 2 weeks. Please walk around your home every hour or two to prevent blood clots from forming in your legs. You do not need to wake from sleeping to walk. Please sleep in a bed or couch to prevent kinking at the hips and knees. Please take your incentive spirometer (your lung registered nurse maternal child) home with you and use it for the next few days to prevent pneumonias. You may shower, no hot tubs, baths or swimming pools. Please call the office with any questions or concerns such as increasing abdominal pain, fever, chills, shortness of breath, chest pain, leg pain or swelling, or redness or drainage from your incisions. Please stay on stage 3 diet which includes sugar free clear liquids such as ice pops and jello and broth and crystal light. Avoid all carbonation. Please drink 3 protein shakes with at least 25-30 grams of protein daily or 3 of the Celebrate 4:1 shakes which can be purchased in our office. The Celebrate shakes have all of the bariatric vitamins you need if you consume these shakes. If you are drinking other protein shakes, you will need to purchase the Celebrate multivitamins and calcium that we provide in the office (they will provide all the vitamins you need). Please make sure you are consuming at least 40-60 ounces of water in addition to your 3 protein shakes daily. Do not hesitate to contact the office with any questions at . The patient's medical history has been reviewed and they are considered low risk for post op DVT and therefore DVT prophylaxis is not considered necessary. Travel after surgery was reviewed. The patient has not disclosed any travel plans during the first 30 days after surgery and they have been advised that within the first 30 days after surgery any bus, plane, train or car travel over 2 hours in duration is contraindicated due to the possibility of developing blood clots from immobility. Any travel, needs to include periods of ambulation of 10 minutes in duration every 2 hours.? The patient was instructed to discuss any plans for travel during this period with their bariatric surgeon. Assessment: stable s/p laparoscopic sleeve gatrectomy and repair of diaphragmatic hernia
[2022-01-29] MEDS: Famotidine/PF 20 MG/2 ML VIAL IVPUSH ×2 (14:37→21:23)
[2022-01-29 14:50] LABS: Hematocrit 38.6 % (37.0-47.0); Hemoglobin 12.8 g/dl (12.0-16.0)
--- NOTE | 2022-01-29 14:51 | P.PNGS_ITS ---
Subjective Subjective Date of Service: 01/29/22 Patient reports: no new complaints and still having pain Interval history: The patient is seen in PACU, pending bed availability. She reports good analgesia. She denies any nausea or vomiting. I spoke with her son Unruly postoperatively by telephone and answered his questions. Explained to the patient and also to her son Unruly that the patient had a moderate hiatal hernia which required repair. In addition, we performed a lysis of adhesions in addition to her sleeve gastrectomy and upper endoscopy. She is reminded that substernal pain will improve over the next 24 hours and is related to the hiatal hernia repair. Physical Exam Vital Signs: Vital Signs: Last Vital Signs Temp 98 F 01/29/22 14:18 Pulse 64 01/29/22 14:33 Resp 16 01/29/22 14:33 BP 144/65 H 01/29/22 14:33 Pulse Ox 99 01/29/22 14:33 O2 Del Method 01/29/22 14:33 O2 Flow Rate 2 01/29/22 14:33 BMI result Body Mass Index 38.3 Patient is comfortable and appropriate Objective Data Active Medications Albuterol Sulfate (Albuterol Sulfate (0.083%) 2.5 Mg/3 Ml Vial.Neb) 2.5 mg INHALE ONCE PRN PRN Reason: Shortness of Breath/Wheezing Famotidine (Famotidine/Pf 20 Mg/2 Ml Vial) 20 mg IVPUSH BID [facility] Last Admin: 01/29/22 14:37 Dose: 20 mg Documented By: NICOLE Fentanyl (Fentanyl Citrate/Pf 100 Mcg/2 Ml Vial) 25 mcg IVPUSH Q5M PRN; Protocol PRN Reason: Pain, Moderate (Pain Scale 4-6 Hydromorphone HCl (Hydromorphone Hcl 0.5 Mg/0.5 Ml Syringe) 0.25 mg IVPUSH Q5M PRN; Protocol PRN Reason: Pain, Severe (Pain Scale 7-10) Hydromorphone HCl (Hydromorphone Hcl 0.5 Mg/0.5 Ml Syringe) 0.5 mg IVPUSH Q5M PRN; Protocol PRN Reason: Pain, Severe (Pain Scale 7-10) Lactated Ringer's (Lr) 1,000 mls @ 150 mls/hr IVCONT .Q6H40M [facility] Last Admin: 01/29/22 09:02 Dose: 150 mls/hr Documented By: AJIT Promethazine HCl 6.25 mg/ (Sodium Chloride) 50.25 mls @ 201 mls/hr IV ONCE PRN PRN Reason: Nausea and Vomiting Promethazine HCl 12.5 mg/ (Sodium Chloride) 50.5 mls @ 202 mls/hr IV ONCE PRN PRN Reason: Nausea and Vomiting Lactated Ringer's (Lr) 1,000 mls @ 125 mls/hr IVCONT .Q8H [facility] Metoclopramide HCl (Metoclopramide Hcl 10 Mg/2 Ml Vial) 10 mg IVPUSH Q6H PRN PRN Reason: Nausea Ondansetron HCl (Ondansetron Hcl 4 Mg/2 Ml Vial) 4 mg IVPUSH ONCE PRN PRN Reason: Nausea and Vomiting Ondansetron HCl (Ondansetron Hcl 4 Mg/2 Ml Vial) 4 mg IVPUSH ONCE PRN PRN Reason: Nausea and Vomiting Labs CBC & Chem 7: 01/29/22 14:39 01/29/22 14:39 Procedures Date of Service Date of Service: 01/29/22 Progress Note: A&P Assessment and plan (1) Status post repair of paraesophageal diaphragmatic hernia: Status: Acute (2) S/P laparoscopic sleeve gastrectomy: Status: Acute (3) Morbid obesity: Status: Acute (4) LBBB (left bundle branch block): Status: Acute (5) Asthma: Status: Acute Plan See orders Bariatric phase 1 diet, encourage incentive spirometry and ambulation Pain in antiemetics as ordered. Time Spent With Patient Time: Total time spent is greater than 50% in coordination of care (as documented) at patient's floor/unit and/or counseling patient: Quality Stroke Does the patient have a stroke diagnosis?: No VTE Prior VTE?: No VTE Risk Level:: Surgical - moderate VTE Device Contraindication: N/A - Device Ordered VTE Drug Contraindication: Treatment Not Indicated
[2022-01-29 15:17] LABS: Blood Urea Nitrogen 14 mg/dL (9-16); Calcium 8.5 mg/dL (8.4-10.2); Estimated Glomerular Filt Rate > 60; Glucose Random 111 mg/dL (60-115)
[2022-01-29 15:25] LABS: Anion Gap 23 (12-20); Carbon Dioxide 15 mmol/L (22-29); Chloride 107 mmol/L (96-108); Potassium 4.5 mmol/L (3.3-5.1); Sodium 140 mmol/L (135-145)
[2022-01-29] MEDS: Lactated Ringers 1,000 ML 125 ML IVCONT (17:35)
[2022-01-29] MEDS: ceFAZolin Sodium/Dextrose,Iso 2 GM/50 ML PIGGYBACK IV (17:37)
[2022-01-29] MEDS: 0.9 % Sodium Chloride Flush 3 ML SYRINGE IVFLUSH (21:23)
--- NOTE | 2022-01-29 23:05 | PC.NURSE ---
two orders for fluids - LR @125 and LR @ 150. Verified with PALMER Dior to run fluids LR @ 125 ml/hr.
[2022-01-30] MEDS: Lactated Ringers 1,000 ML 125 ML IVCONT (00:33)
[2022-01-30] MEDS: ondansetron HCL 4 MG/2 ML VIAL IVPUSH (02:34)
[2022-01-30 03:17] VITALS: BP 140/74; RESP 16; TEMP 36.8; O2SAT 94
[2022-01-30 05:57] LABS: MANUAL DIFF FLAG NO
[2022-01-30 06:36] LABS: Anion Gap 16 (12-20); Basophils Percent Auto 0.2 % (0-2); Blood Urea Nitrogen 9 mg/dL (9-16); Carbon Dioxide 24 mmol/L (22-29); Chloride 104 mmol/L (96-108); Eosinophils Percent Auto 0.1 % (0-4); Estimated Glomerular Filt Rate > 60; Glucose Random 86 mg/dL (60-115); Hematocrit 35.9 % (37.0-47.0); Imm Gran Abs Auto 0.05 X10*3/uL (0.00-0.03); Imm Gran Pct Auto 0.5 % (0.0-0.4); Lymphocytes Absolute Auto 1.7 X10*3/uL (1.2-4.9); Lymphocytes Percent Auto 16.1 % (20-40); Mean Corpuscular HGB Conc 33.4 g/dl (31.0-35.0); Mean Corpuscular Volume 89.8 fL (80.0-98.0); Mean Platelet Volume 9.2 fL (9.4-12.3); Monocytes Percent Auto 9.5 % (2-11); Neutrophils Absolute Auto 7.8 x10*3/uL (2.0-8.3); Neutrophils Percent Auto 73.6 % (45-73); Platelet Count 253 X10*3/uL (160-400); Potassium 4.3 mmol/L (3.3-5.1); Red Cell Distribution Width 13.6 % (11.0-16.0); Sodium 140 mmol/L (135-145); White Blood Count 10.6 X10*3/uL (4.8-10.8)
--- NOTE | 2022-01-30 06:46 | P.PNGS_ITS ---
Subjective Subjective Date of Service: 01/30/22 Patient reports: feels better, pain is less and tolerating liquids well Interval history: The patient is doing well postoperatively. She denies any dizziness, odynophagia, hematemesis or regurgitation. She is tolerating bariatric phase 1. She denies any pain in her chest or difficulty breathing. I reviewed the intraoperative findings including probable reactive adenopathy and her hiatal hernia. Her questions seemed to be satisfactorily answered. Physical Exam Vital Signs: Vital Signs: Last Vital Signs Temp 98.3 F 01/30/22 03:17 Pulse 60 01/29/22 23:52 Resp 16 01/30/22 03:17 BP 140/74 H 01/30/22 03:17 Pulse Ox 94 01/30/22 03:17 O2 Del Method 01/30/22 03:17 O2 Flow Rate 2 01/29/22 17:15 BMI result Body Mass Index 38.3 Patient is nontoxic and is in good spirits Abdominal dressings are clean/dry/intact Appropriate incisional tenderness is present Objective Data Active Medications Albuterol Sulfate (Albuterol Sulfate (0.083%) 2.5 Mg/3 Ml Vial.Neb) 2.5 mg INHALE ONCE PRN PRN Reason: Shortness of Breath/Wheezing Famotidine (Famotidine/Pf 20 Mg/2 Ml Vial) 20 mg IVPUSH BID [facility] Last Admin: 01/29/22 21:23 Dose: 20 mg Documented By: DAIANAQC Fentanyl (Fentanyl Citrate/Pf 100 Mcg/2 Ml Vial) 25 mcg IVPUSH Q5M PRN; Protocol PRN Reason: Pain, Moderate (Pain Scale 4-6 Hydromorphone HCl (Hydromorphone Hcl 0.5 Mg/0.5 Ml Syringe) 0.25 mg IVPUSH Q5M PRN; Protocol PRN Reason: Pain, Severe (Pain Scale 7-10) Hydromorphone HCl (Hydromorphone Hcl 0.5 Mg/0.5 Ml Syringe) 0.5 mg IVPUSH Q5M PRN; Protocol PRN Reason: Pain, Severe (Pain Scale 7-10) Hydromorphone HCl (Hydromorphone Hcl 0.5 Mg/0.5 Ml Syringe) 0.25 mg IVPUSH Q4H PRN; Protocol PRN Reason: Pain, Moderate (Pain Scale 4-6 Lactated Ringer's (Lr) 1,000 mls @ 150 mls/hr IVCONT .Q6H40M COUNT INCLUDES THE [facility] Last Admin: 01/30/22 04:03 Dose: Not Given Documented By: ELENITA Non-Admin Reason: Duplicate Order Promethazine HCl 6.25 mg/ (Sodium Chloride) 50.25 mls @ 201 mls/hr IV ONCE PRN PRN Reason: Nausea and Vomiting Promethazine HCl 12.5 mg/ (Sodium Chloride) 50.5 mls @ 202 mls/hr IV ONCE PRN PRN Reason: Nausea and Vomiting Lactated Ringer's (Lr) 1,000 mls @ 125 mls/hr IVCONT .Q8H COUNT INCLUDES THE [facility] Last Admin: 01/30/22 06:44 Dose: Not Given Documented By: ELENITA Non-Admin Reason: IV Running Acetaminophen (Ofirmev) 1,000 mg in 100 mls @ 16.7 mls/hr IV .Q6H COUNT INCLUDES THE [facility] Last Admin: 01/30/22 05:59 Dose: 16.7 mls/hr Documented By: ELENITA Metoclopramide HCl (Metoclopramide Hcl 10 Mg/2 Ml Vial) 10 mg IVPUSH Q6H PRN PRN Reason: Nausea Ondansetron HCl (Ondansetron Hcl 4 Mg/2 Ml Vial) 4 mg IVPUSH ONCE PRN PRN Reason: Nausea and Vomiting Ondansetron HCl (Ondansetron Hcl 4 Mg/2 Ml Vial) 4 mg IVPUSH ONCE PRN PRN Reason: Nausea and Vomiting Ondansetron HCl (Ondansetron Hcl 4 Mg/2 Ml Vial) 4 mg IVPUSH Q8H COUNT INCLUDES THE [facility] Last Admin: 01/30/22 02:34 Dose: 4 mg Documented By: ELENITA Sodium Chloride (0.9 % Sodium Chloride Flush 3 Ml Syringe) 3 ml IVFLUSH QSHIFT COUNT INCLUDES THE [facility] Last Admin: 01/29/22 21:23 Dose: 3 ml Documented By: ELENITA Labs CBC & Chem 7: 01/30/22 05:15 01/30/22 05:15 Labs: Laboratory Results - last 24 hr 01/29/22 01/30/22 01/30/22 14:39 05:15 05:15 MCV 89.8 MCH 30.0 MCHC 33.4 RDW 13.6 Plt Count 253 MPV 9.2 L Immature Gran % (Auto) 0.5 H Neut % (Auto) 73.6 H Lymph % (Auto) 16.1 L [place] % (Auto) 9.5 Eos % (Auto) 0.1 Baso % (Auto) 0.2 Lymph # (Auto) 1.7 [place] # (Auto) 1.0 Eos # (Auto) 0.0 Baso # (Auto) 0.0 Abs Immat Gran (auto) 0.05 H Absolute Neuts (auto) 7.8 Absolute Nucleated RBC 0.000 Nucleated RBC % (auto) 0.0 Anion Gap 23 H 16 Estim Creat Clear Calc 93.0 93.0 Estimated GFR > 60 > 60 Random Glucose 111 86 Calcium 8.5 D 9.0 Procedures Date of Service Date of Service: 01/30/22 Progress Note: A&P Assessment and plan (1) Status post repair of paraesophageal diaphragmatic hernia: Status: Acute (2) S/P laparoscopic sleeve gastrectomy: Status: Acute (3) Morbid obesity: Status: Acute (4) LBBB (left bundle branch block): Status: Acute (5) Asthma: Status: Acute (6) Hypersomnolence: Status: Acute (7) Adjustment disorder: Status: Acute Plan Advanced to bariatric phase 2 diet See discharge Time Spent With Patient Time: Total time spent is greater than 50% in coordination of care (as documented) at patient's floor/unit and/or counseling patient: Quality Stroke Does the patient have a stroke diagnosis?: No VTE Prior VTE?: No VTE Risk Level:: Surgical - moderate VTE Device Contraindication: N/A - Device Ordered VTE Drug Contraindication: Treatment Not Indicated
[2022-01-30 07:59] VITALS: BP 106/59; PULSE 50; RESP 18; TEMP 36.2; O2SAT 97
[2022-01-30] MEDS: Famotidine/PF 20 MG/2 ML VIAL IVPUSH (08:10)
--- NOTE | 2022-01-30 09:12 | MHC.CM.PN ---
CM MET WITH PATIENT, LIVES ALONE IN A CONDOMINIUM, NO DME OR SERVICES, NO HCP AND DECLINES TO FILL ONE OUT. COVID VAX X4 WITH [employer] PCP MOLLY UGALDE AT [facility]. DP: PT IS MEDICALLY CLEARED FOR DC HOME, SON'S [facility] WILL TRANSPORT
--- NOTE | 2022-01-30 11:53 | HO.POSTANES ---
Post Anesthesia Evaluation Post Anesthesia Evaluation Vital Signs: Vital Signs Temp Pulse Resp BP Pulse Ox O2 Del Method 01/30/22 07:59 97.1 F 50 18 106/59 L 97 Room Air 01/30/22 03:17 98.3 F 16 140/74 H 94 Room Air Anesthesia: General Endotracheal-GETA Mental Status: Awake Pain Control: Satisfactory Nausea/Vomiting: None Hydration: Adequate Anesthesia-Related Issues: No Anes. Related Issues
== END 2022-01-30 09:22 | disposition home or self-care (01) | DRG 403 ==
LOC: HO.SSSA 09:11 → HO.S3 17:45
PROVIDERS: Physician Assistant Surgical; Admitting Provider Surgery; PCP Internal Medicine; Visit Provider Surgery
PROC: 0DB64Z3 Excision of Stomach, Percutaneous Endoscopic Approach, Vertical (ICD-10-PCS; CPT 43845; principal; 2022-01-29 10:10)
DX: E66.01 Morbid (severe) obesity due to excess calories (principal); I44.7 Left bundle-branch block, unspecified; K44.9 Diaphragmatic hernia without obstruction or gangrene; Z68.38 Body mass index [BMI] 38.0-38.9, adult; K66.0 Peritoneal adhesions (postprocedural) (postinfection); J45.909 Unspecified asthma, uncomplicated; Z20.822 Contact with and (suspected) exposure to COVID-19; Z88.8 Allergy status to other drugs, medicaments and biological substances; Z79.899 Other long term (current) drug therapy
CPT/HCPCS: 43775; 43659; 38570; 36415; 80048; 80053; 80061; 83036; 84443; 85014; 85018; 85025; 85610; 85730; 86140; 86850; 86900; 86901; 87635; 88305; 88307; 88342; C9088; J0131; J0690; J1170; J2250; J2405; J2795; J3010

== ENCOUNTER → 2022-04-23 09:32 | Outpatient (BNVA) | payer OTHER, SELFPAY | PROVIDERS: PCP Internal Medicine; Visit Provider Physician Assistant | DX: Z98.84 Bariatric surgery status (principal) ==

== ENCOUNTER → 2022-04-30 11:16 | Outpatient (BNVA) | payer OTHER, SELFPAY | PROVIDERS: PCP Internal Medicine; Visit Provider Counselor Mental Health | DX: F43.22 Adjustment disorder with anxiety (principal); Z98.84 Bariatric surgery status | CPT/HCPCS: 90834 ==

== ENCOUNTER → 2022-05-19 09:49 | Outpatient (BNVA) | payer OTHER, SELFPAY | PROVIDERS: PCP Internal Medicine; Visit Provider Physician Assistant | DX: Z13.89 Encounter for screening for other disorder (principal) ==

== ENCOUNTER → 2022-07-03 15:13 | Outpatient (BNVA) | payer MEDICAID, SELFPAY | PROVIDERS: PCP Internal Medicine; Visit Provider Physician Assistant | DX: E66.01 Morbid (severe) obesity due to excess calories (principal); Z68.29 Body mass index [BMI] 29.0-29.9, adult; Z98.84 Bariatric surgery status | CPT/HCPCS: 99212 ==

== ENCOUNTER → 2022-08-07 15:12 | Outpatient (BNVA) | payer OTHER, SELFPAY | PROVIDERS: PCP Internal Medicine; Visit Provider Physician Assistant | DX: E66.3 Overweight (principal); Z68.27 Body mass index [BMI] 27.0-27.9, adult; Z98.84 Bariatric surgery status | CPT/HCPCS: 99212 ==

== ENCOUNTER 2022-08-28 12:57 | Outpatient (REF) | payer OTHER, SELFPAY ==
[2022-08-28 13:13] LABS: MANUAL DIFF FLAG NO
[2022-08-28 13:40] LABS: Basophils Percent Auto 0.5 % (0-2); Eosinophils Absolute Auto 0.1 X10*3/uL (0.0-0.4); Eosinophils Percent Auto 1.7 % (0-4); Hematocrit 43.6 % (37.0-47.0); Hemoglobin 14.5 g/dl (12.0-16.0); Imm Gran Abs Auto 0.03 X10*3/uL (0.00-0.03); Imm Gran Pct Auto 0.4 % (0.0-0.4); Lymphocytes Absolute Auto 2.2 X10*3/uL (1.2-4.9); Lymphocytes Percent Auto 28.5 % (20-40); Mean Corpuscular HGB Conc 33.3 g/dl (31.0-35.0); Mean Corpuscular Hemoglobin 30.4 pg (27.0-33.0); Mean Corpuscular Volume 91.4 fL (80.0-98.0); Mean Platelet Volume 8.6 fL (9.4-12.3); Monocytes Absolute Auto 0.5 X10*3/uL (0.1-1.2); Monocytes Percent Auto 6.7 % (2-11); Neutrophils Absolute Auto 4.9 x10*3/uL (2.0-8.3); Neutrophils Percent Auto 62.2 % (45-73); Platelet Count 270 X10*3/uL (160-400); Red Blood Count 4.77 X10*6/uL (4.20-5.50); White Blood Count 7.8 X10*3/uL (4.8-10.8)
[2022-08-28 13:54] LABS: Estimated Average Glucose 103 mg/dL; Hemoglobin A1c % 5.2 %
[2022-08-28 15:31] LABS: Alanine Aminotransferase 20 U/L (0-31); Albumin Level 4.5 g/dL (3.5-5.0); Alkaline Phosphatase 103 U/L (39-117); Anion Gap 14 (12-20); Aspartate Amino Transferase 15 U/L (5-31); Bilirubin Total 0.6 mg/dL (0.0-1.0); Blood Urea Nitrogen 14 mg/dL (9-16); C Reactive Protein < 0.10 mg/dL (< or = 0.50); Carbon Dioxide 26 mmol/L (22-29); Chloride 106 mmol/L (96-108); Cholesterol 199 mg/dL; Estimated Glomerular Filt Rate > 60; Glucose Random 94 mg/dL (60-115); HDL Cholesterol 54 mg/dL; Iron 72 mcg/dL (30-160); LDL Cholesterol Calculated 125 mg/dl; Percent Iron Saturation 23 % (15-50); Sodium 142 mmol/L (135-145); Total Iron Binding Capacity 317 mcg/dL (228-428); Total Protein 7.3 g/dL (6.5-8.0); Triglycerides 100 mg/dL; Unsaturated Iron Binding 245 ug/dL
[2022-08-28 15:48] LABS: Ferritin 181 ng/mL (10-250); Folate 15.6 ng/mL (> or = 4.0); Insulin 6 uU/mL (2-29); TSH reflex Free T4 1.53 uIU/mL (0.32-4.0); Vitamin B12 1006 pg/mL (200-900); Vitamin D 25-OH Total 51.3 ng/mL (>30)
[2022-09-01 15:24] LABS: Calcium (PTHI) 10.5 mg/dL (8.6-10.4); PTHI 48 pg/mL (16-77)
[2022-09-01 23:38] LABS: Zinc 83 mcg/dL (60-130)
[2022-09-04 01:14] LABS: Vitamin A 58 mcg/dL (38-98)
[2022-09-04 15:42] LABS: Vitamin B1 18 nmol/L (8-30)
== END 2022-08-28 12:58 | disposition home or self-care (01) ==
LOC: HO.LAB 12:57
PROVIDERS: PCP Internal Medicine; Visit Provider Physician Assistant
DX: Z98.84 Bariatric surgery status (principal)
CPT/HCPCS: 36415; 80053; 80061; 82306; 82607; 82728; 82746; 83036; 83525; 83540; 83970; 84425; 84443; 84590; 84630; 85025; 86140

== ENCOUNTER → 2022-09-04 09:52 | Outpatient (BNVA) | payer OTHER, SELFPAY | PROVIDERS: PCP Internal Medicine; Visit Provider Dietitian, Registered | DX: E66.3 Overweight (principal); Z68.26 Body mass index [BMI] 26.0-26.9, adult; Z90.49 Acquired absence of other specified parts of digestive tract; Z98.84 Bariatric surgery status | CPT/HCPCS: 97803 ==

== ENCOUNTER → 2022-10-22 14:06 | Outpatient (BNVA) | payer OTHER, SELFPAY | PROVIDERS: PCP Internal Medicine; Visit Provider Dietitian, Registered | DX: E66.3 Overweight (principal); Z68.25 Body mass index [BMI] 25.0-25.9, adult; Z90.49 Acquired absence of other specified parts of digestive tract; Z90.3 Acquired absence of stomach [part of] | CPT/HCPCS: 97803 ==

== ENCOUNTER 2023-01-29 09:10 | Outpatient (AMB) | payer OTHER, SELFPAY ==
--- NOTE | 2023-01-29 08:38 | A.OFFVIS_ITS ---
Intake VS Expanded 01/29/23 09:19 BP 135/69 Blood Pressure Location Rt brachial Blood Pressure Position Sitting Pulse 69 Pulse Source Pulse Oximeter Temp 99.0 F Temperature Source Temporal Artery Scan Pulse Oximetry 97 Oxygen Delivery Method Room Air Height 5 ft 2 in Weight 129 lb 9.6 oz BMI 23.7 Body Fat % 24.5 Body Fat Mass 31.8 Fat Free Mass 97.6 Visceral Fat Rating 6.0 Body Water % 53.3 Body Water Mass 69.0 Muscle Mass/Score 92.6 Basal Metabolic Rate/Score 1,291 Intake Visit Reasons: (OV) PO LSG 01/29/22 Allergies azithromycin Adverse Reaction (Verified 01/29/23 09:15) Abdominal Pain Medication List - Last Reconciled 01/29/23 by Ana Molina PA-C albuterol sulfate 90 mcg/actuation 2 puffs inhalation QID PRN biotin 10 mg PO DAILY calcium citrate-vitamin D3 500 mg-12.5 mcg (500 unit) 1 tab PO BID [id number]-vit K 45 mg iron- 800 mcg-120 mcg (Bariatric Multivitamins) caps PO psyllium husk (Fiber (psyllium husk)) 0.4 grams PO DAILY HPI HPI Comments History of Present Illness Details Pt is now 1 year s/p LSG. 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 Her ideal meal plan would be: 8am - 15 grams protein - yogurt OR low carb tortilla egg wrap 1 - 3 pm - 21 grams - 3 oz protein, 4-5 oz vegetable - no more than 8 oz at any meal dinner - same no skipping meals Exercise - pool classes and ST - 1500 kcal burn per week. Pt reports issues with excess skin o f abdomen. She get s rashes and irrit ation of skin fold . Moisture collect s, there, making i t very itchy. She has to wash freque ntly to keep the a kwame clean- has to clean and dry area multiple times a day. Has to wear p ants with a compre ssive waistband to help hold skin in place to prevent discomfort.??? Patient also complains of excess skin on thighs- skin rubs together and is unc omfortable to walk and exercise, has irritation from skin rubbing. Excess skin on arms, excess skin flaps with arm movements creating irritation. It is diccicult for hte to find clothing that fits due to excess skin. Post op complications: none BRIDGETTE: never DM; never HTN: never Hyperlipidemia: never GERD: 0 Satisfaction with present condition - satisfied [facility] Medical History (Updated 11/07/22 @ 13:30 by Ana Molina PA-C) COVID-19 vaccine series completed Spine misalignment Asthma LBBB (left bundle branch block) Hypersomnolence Morbid obesity Surgical History Hx of laparoscopy Hx of excision of mass History of excision of pilonidal cyst History of laparoscopic cholecystectomy H/O colonoscopy Family History Mother Dementia Heart problem Father Sleep apnea Diabetes Hypertension FH: prostate cancer Diverticulitis Sister Obesity Diabetes Sleep apnea Melanoma Social History (Updated 08/07/22 @ 15:17 by Debra Stevens CMA) Are you a primary healthcare educator to a significant other at home: No Do you presently have visiting nurse or other home services: No Alcohol intake: current Alcohol intake frequency: holidays/special occasions only Patient Tobacco Use Status: Never used Tobacco service: No Current occupational status: employed Physical Exam Const General: cooperative, healthy appearing and no acute distress GI Inspection: Yes incision (all well healed) Palpation (GI): Soft to palpation, nontender, no guarding, no hernias and no masses Assessment & Plan Assessment & Plan (1) S/P laparoscopic sleeve gastrectomy: Code(s): Z98.84 - Bariatric surgery status Plan: Healthy weight loss and excellent stabilization of maintenance weight. Meaal plan - 3 meals per day - 15 grams breakfast, 21 grams each for lunch and dinner. Exercise - now 15 00 kcal per week of cardio and ST - details discussed. Next aptp judi blackmon in 6 months, Ann in 2 monhts. (2) Excess skin of thigh: Code(s): L98.7 - Excessive and redundant skin and subcutaneous tissue Plan: Photos taken today for insurance authorization (3) Excess skin of abdomen: Code(s): L98.7 - Excessive and redundant skin and subcutaneous tissue Plan: Photos taken today (4) Excess skin of arm: Code(s): L98.7 - Excessive and redundant skin and subcutaneous tissue Plan: Photos taken today Orders: Orders Insulin Today Z.84 - Bariatric surgery status Lipid Panel Today Z. - Bariatric surgery status IRON PROFILE Today Z.84 - Bariatric surgery status Vitamin B12 and Folate Today Z.84 - Bariatric surgery status Comprehensive Met. Panel Today . - Bariatric surgery status Vitamin B1 Today Z. - Bariatric surgery status Vitamin A Today Z. - Bariatric surgery status C Reactive Protein Today Z. - Bariatric surgery status PTHI Today Z.84 - Bariatric surgery status Complete Blood Count Auto Diff Today Z. - Bariatric surgery status Zinc Today Z. - Bariatric surgery status Ferritin Today Z. - Bariatric surgery status TSH reflex Free T4 Today Z.84 - Bariatric surgery status Vitamin D 25-OH Total Today Z.84 - Bariatric surgery status Hemoglobin A1c Today Z.84 - Bariatric surgery status Coding Level of Care Code Est Pt Level 4 (13033) Diagnoses S/P laparoscopic sleeve gastrectomy Z.84 Excess skin of thigh L98.7 Excess skin of abdomen L98.7 Excess skin of arm L98.7
[2023-01-29 09:19] VITALS: BP 135/69; PULSE 69; TEMP 37.2; O2SAT 97; BMI 23.7
== END 2023-01-29 10:11 | disposition home or self-care (01) ==
PROVIDERS: Visit Provider Physician Assistant
DX: L98.7 Excessive and redundant skin and subcutaneous tissue (principal); Z90.3 Acquired absence of stomach [part of]; Z98.84 Bariatric surgery status
CPT/HCPCS: 99214

== ENCOUNTER → 2023-01-29 09:10 | Outpatient (BNVA) | payer OTHER, SELFPAY | PROVIDERS: Visit Provider Physician Assistant | DX: L98.7 Excessive and redundant skin and subcutaneous tissue (principal); Z98.84 Bariatric surgery status | CPT/HCPCS: 99212 ==

== ENCOUNTER 2023-10-12 17:41 | Emergency (ER) | payer OTHER, SELFPAY ==
--- NOTE | ~2023-10-12 | XR_ITS ---
EXAMINATION: XR FOOT, LEFT CLINICAL INFORMATION: Fall. COMPARISON: None available. TECHNIQUE: AP, lateral, and oblique views of the left foot. FINDINGS: No acute abnormality. No fracture or dislocation. There is a plantar calcaneal spur. Small spur of the navicular bone at the talonavicular joint at the dorsum of the foot. XR/XR foot LT 2V IMPRESSION: No acute abnormality of the foot.
[2023-10-12 19:05] VITALS: BP 144/68; PULSE 66; RESP 16; TEMP 36.3; O2SAT 98; BMI 25.5
--- NOTE | 2023-10-12 19:07 | ED_ITS ---
HPI - Extremity Problem General Chief complaint: Extremity Injury, Lower Stated complaint: toe pain on left foot Time Seen by Provider: 10/12/23 22:16 Source: patient Mode of arrival: ambulatory History of Present Illness ED Provider: Dr Kevin HPI Narrative: 63-year-old female who states that she was walking upstairs earlier this evening and caught toes 3-5 on the edge of the stair with significant pain thereafter is concerned that she may have a fracture. Related Data Home Medications ?Medication ?Instructions ?Recorded ?Confirmed biotin 10 mg tablet 10 mg PO DAILY 03/06/22 01/29/23 [id number]-[id number]-zznm 45 mg-folic cap PO 04/23/22 01/29/23 acid 800 mcg-vit K 120 mcg capsule (Bariatric Multivitamins) albuterol sulfate 90 mcg/actuation 2 puff inhalation QID PRN 01/29/23 01/29/23 aerosol inhaler psyllium husk 0.4 gram capsule 0.4 g PO DAILY 01/29/23 01/29/23 (Fiber (psyllium husk)) Previous Rx's ?Medication ?Instructions ?Recorded calcium citrate 500 mg-vitamin D3 1 tab PO BID #60 tabs 07/15/22 12.5 mcg (500 unit) chewable tablet clotrimazole 1 % topical cream 1 appl topical BID #90 grams 02/24/23 Allergies Allergy/AdvReac Type Severity Reaction Status Date / Time azithromycin AdvReac Abdominal Verified 10/12/23 19:07 Pain Review of Systems Review of Systems: Pertinent positives and negatives as stated in HPI PMFSH Past Medical History Source: nursing notes reviewed Medical History COVID-19 vaccine series completed Spine misalignment Asthma LBBB (left bundle branch block) Hypersomnolence Morbid obesity Surgical History Hx of laparoscopy Hx of excision of mass History of excision of pilonidal cyst History of laparoscopic cholecystectomy H/O colonoscopy Family History Family History Mother Dementia Heart problem Father Sleep apnea Diabetes Hypertension FH: prostate cancer Diverticulitis Sister Obesity Diabetes Sleep apnea Melanoma Social History Social History Are you a primary health care sanitary technician to a significant other at home: No Do you presently have visiting nurse or other home services: No Alcohol intake: current Alcohol intake frequency: holidays/special occasions only Patient Tobacco Use Status: Never used Tobacco Advance Directives: No Advance Directives Information Provided: No Patient : No service: No Current occupational status: employed Physical Exam Vital Signs: Vital Signs: Last Vital Signs Temp 98.0 F 10/12/23 23:22 Pulse 73 10/12/23 23:22 Resp 18 10/12/23 23:22 BP 152/93 H 10/12/23 23:22 Pulse Ox 99 10/12/23 23:22 O2 Del Method Room Air 10/12/23 23:22 BMI result Body Mass Index 25.5 VITAL SIGNS: Reviewed. GENERAL: Well developed, well nourished, in no acute distress. HEAD: Normocephalic/atraumatic EYES: PERRLA, EOMI LUNGS: Normal breath sounds. No adventitious sounds or accessory muscle use. SpO 2<99> CARDIOVASCULAR: Regular rate and rhythm without noted murmurs ABDOMEN: Soft, non-tender, non-distended with bowel sounds. MUSCULOSKELETAL: No tenderness, deformities, or effusions noted on gross inspection. EXTREMITIES: No cyanosis, clubbing or edema. LEFT FOOT: No obvious deformity/erythema/induration, neurovascularly intact SKIN: Inspection of the skin reveals no rashes NEUROLOGIC: Alert and oriented x 4. Strength and sensation to light touch were grossly intact x 4. Course Course Course Narrative: This is a rapid medical exam completed by Juan BOBBIN PRESSER: Additional HPI, ROS, PE not included below will be deferred to primary provider. Tripped and missed the step carrying a box of clean cat litter injuring left toes. No paresthesias Medical Decision Making Medical Decision Making MDM Narrative: 63-year-old female with history and clinical presentation of possible sprain versus fracture, on review of imaging studies there is no evidence of fracture or dislocation, all results discussed with the patient at bedside and she is otherwise discharged home in stable condition. Differential Diagnosis Differential Diagnoses: The differential diagnosis associated with the presentation includes Please see the discussion above Admission/Observation Consideration of admission/observation: Escalation of care including admission/observation considered Please see the discussion above Radiology Impression Discussion of test interpretation with radiology: I have reviewed the radiologist's reading. Radiologist Impression: Please see the discussion above External Record Review External record reviewed: Outpatient record, Prior outpatient labs and Prior outpatient radiology Critical Care Time Critical Care Time Critical Care Time: Yes Total Critical Care Time: 30 Attestation: I personally attest to this time spent taking care of the patient. Discharge Plan Discharge Clinical Impression: Toe sprain Patient Disposition: Home, Self-Care Instructions: Foot Sprain (ED) Additional Instructions: Recommend Tylenol, elevation, ice to unexposed skin for additional symptom relief. Return to the ER for any worsening symptoms. Prescriptions: No Action calcium citrate-vitamin D3 500 mg-12.5 mcg (500 unit) tablet,chewable 1 tab PO BID Qty: 60 11RF albuterol sulfate 90 mcg/actuation HFA aerosol inhaler 2 puff inhalation QID PRN biotin 10 mg tablet 10 mg PO DAILY Bariatric Multivitamins 45 mg iron- 800 mcg-120 mcg capsule PO psyllium husk [Fiber (psyllium husk)] 0.4 gram capsule 0.4 g PO DAILY clotrimazole 1 % cream 1 appl topical BID Qty: 90 1RF Referrals: Darian Miller MD [Primary Care Provider] - Stand Alone Forms: Work/School Release Interventions: ED Discharge Assessment Last Done: 10/12/23 23:22 Discharge Date/Time: 10/12/23 23:22 Print Language: Maltese
[2023-10-12 22:26] VITALS: BP 145/68; PULSE 68; RESP 18; TEMP 36.5; O2SAT 98
[2023-10-12 23:21] VITALS: BP 152/93; PULSE 73; RESP 18; TEMP 36.7; O2SAT 99
[2023-10-12 23:22] VITALS: BP 152/93; PULSE 73; RESP 18; TEMP 36.7; O2SAT 99
== END 2023-10-12 23:22 | disposition home or self-care (01) ==
PROVIDERS: Emergency Provider Student in an Organized Health Care Education/Training Program; PCP Internal Medicine
DX: S93.505A Unspecified sprain of left lesser toe(s), initial encounter (principal); M79.672 Pain in left foot; Y29.XXXA Contact with blunt object, undetermined intent, initial encounter; Y93.9 Activity, unspecified; Y92.9 Unspecified place or not applicable; Y99.8 Other external cause status; Z79.899 Other long term (current) drug therapy
CPT/HCPCS: 73620; 99283; 99284

== ENCOUNTER → 2024-05-04 11:40 | Outpatient (BNV) | payer OTHER, SELFPAY | PROVIDERS: Emergency Provider Emergency Medicine Emergency Medical Services; PCP Internal Medicine; Visit Provider Radiology Diagnostic Radiology | DX: R10.30 Lower abdominal pain, unspecified (principal) | CPT/HCPCS: 74177 ==